=== PATIENT | male | born 1950 | race Caucasian/White ===

== ENCOUNTER → 2018-06-11 06:27 | Outpatient (CLI) | payer MEDICARE, OTHER, SELFPAY ==
[2018-05-28 15:03] VITALS: BMI 30.8
--- NOTE | 2018-06-11 06:31 | ECHOCS_ITS ---
Reason For Study: ARRHYTHMIA Procedure This was a 2D Doppler, Color Flow transthoracic echocardiogram. Exam performed in department. Left Ventricle Normal LV size. The estimated ejection fraction is 45 %. Septal motion consistent with IVCD. Stage 1 diastolic dysfunction. No regional wall motion abnormalities noted. Right Ventricle Normal RV size. Normal systolic function. Atria Normal left atrium. Normal right atrium. Mitral Valve Normal mitral valve. Tricuspid Valve Normal tricuspid valve. Mild tricuspid valve insufficiency. Aortic Valve Normal aortic valve. Pulmonic Valve Normal pulmonic valve. Great Vessels Normal aortic root. The pulmonary artery is normal size. Normal inferior vena cava. Pericardium/Pleural No pericardial effusion. Medication Diluted definity 3ml given slow IV push to enhance endocardial definition. MMode/2D Measurements & Calculations LVIDd: 5.2 cm IVSd: 1.1 cm Ao root diam: 3.5 cm LVIDs: 3.5 cm LVPWd: 1.1 cm RVDd: 4.0 cm FS: 32.5 % LAV(MOD-bp): 54.1 ml LVAd ap4: 39.1 cm2 SV(MOD-sp4): 59.1 ml LAV(MOD-bp) Indexed: 25.4 ml/m2 EDV(MOD-sp4): 135.8 ml LAV(MOD-sp2): 68.1 ml EDV(sp4-el): 142.8 ml LAV(MOD-sp4): 44.0 ml LVAs ap4: 27.4 cm2 ESV(MOD-sp4): 76.8 ml ESV(sp4-el): 78.6 ml EF(MOD-sp4): 43.5 % EF(sp4-el): 45.0 % SV(sp4-el): 64.2 ml LA A4 area: 16.5 cm2 LA dimension(2D): 3.8 cm RA A4 area: 12.9 cm2 Time Measurements MV dec time: 0.27 sec Doppler Measurements & Calculations MV E max ruiz: 64.2 cm/sec Lat Peak E' Ruiz: 8.0 cm/sec Med Peak E' Ruiz: 5.5 cm/sec MV A max ruiz: 86.9 cm/sec E/E' lat: 8.0 E/E' med: 11.7 MV E/A: 0.74 Ao V2 max: 131.5 cm/sec LV V1 max: 100.4 cm/sec TR max ruiz: 216.4 cm/sec Ao max P.9 mmHg LV V1 max P.0 mmHg TR max P.8 mmHg Interpretation Summary Normal LV size. The estimated ejection fraction is 45 %. Septal motion consistent with IVCD. Stage 1 diastolic dysfunction. Compared to prior study, there is no significant change. Ordering Physician: Rey Michaud Referring Physician: EVIN KING Performed By: Tina Lee, RDCS, RVT
--- NOTE | 2018-06-11 12:49 | STRESSREP ---
Stress Test Report Pharmacologic myocardial perfusion stress test. 67-year-old lady with a history of left bundle branch block patent. Stress protocol Resting EKG demonstrates normal sinus rhythm with a rate of 62 bpm left bundle branch block pattern is noted. The resting blood pressure 140/80 mmHg. 0.4 mg of regadenoson was infused per usual protocol followed by rapid intravenous saline flush injection continuous EKG monitoring was performed. At rest there were no ST or T wave changes noted suggest abnormal flow reserve. Left bundle branch block pattern was noted throughout. The maximum heart rate was 73 bpm which was 48% of maximum predicted heart rate. The maximum workload was 1 metabolic equivalent. Myocardial perfusion protocol. 12.0 mCi of technetium 99m sestamibi was injected at rest. 0.4 mg of regadenoson was infused per usual protocol peak infusion 36.0 mCi of technetium 99m sestamibi was injected stress images were obtained stress and rest images were reconstructed and compared in the short axis vertical long horizontal long axis. Gated images were also obtained next Perfusion SPECT analysis: Review of the stress images demonstrate normal uptake of tracer noted in the septum anterior wall and lateral wall. There is mildly reduced perfusion noted in the inferior septal wall with mild improvement on rest suggesting a mild amount of reversible ischemia. Left bundle branch block patent artifact cannot be completely excluded. Gated SPECT analysis: The gated ejection fraction is noted to be 48%. Conclusion: Myocardial perfusion stress test with mildly abnormal inferior septal perfusion defect. Mild cardiomyopathy present.
== END ==
PROVIDERS: Family Provider Internal Medicine; PCP Internal Medicine; Referring Provider Internal Medicine Cardiovascular Disease; Visit Provider Internal Medicine Cardiovascular Disease
DX: I44.7 Left bundle-branch block, unspecified (principal); I25.10 Atherosclerotic heart disease of native coronary artery without angina pectoris
CPT/HCPCS: 78452; 93017; 93306; A9500; Q9957; A4216; C8929; J2785

== ENCOUNTER → 2019-11-16 09:57 | Outpatient (CLI) | payer MEDICARE, OTHER, SELFPAY ==
[2019-06-10 11:57] VITALS: BMI 30.8
== END ==
PROVIDERS: PCP Physician Assistant; Referring Provider Family Medicine; Visit Provider Family Medicine
DX: Z11.59 Encounter for screening for other viral diseases (principal)
CPT/HCPCS: 87635; C9803; U0003

== ENCOUNTER 2022-01-05 05:53 | Day surgery (SDC) | payer MEDICARE, OTHER, SELFPAY ==
--- NOTE | 2022-01-05 | GASB_PTH ---
PATIENT: ALFRED MCKOY LOC: EN U#:[id number] AGE/SX: 71/M ROOM: RE01/05/[address]: Dr. 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 pylori, B - Greater curvature polyp, C - Distal esophagus biopsy MICROSCOPIC DIAGNOSIS A. Antrum, biopsy: Mild gastritis. See microscopic description and comment. B. Greater curvature polyp, biopsy: Fundic gland polyp. C. 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 Moderate chronic inflammation. Negative for dysplasia. See comment. COMMENT A. The results of immunohistochemistry for Helicobacter pylori will be reported separately ([id number]). C. Alcian blue/PAS stain with matched control is used in the evaluation of the specimen. Immunohistochemistry ([id number]) for P53 and Ki-67 will be performed and results will be reported separately. MICROSCOPIC DESCRIPTION Slides are reviewed. The specimen shows fragments of gastric mucosa with chronic inflammatory cell infiltrates in the lamina propria consisting of lymphocytes and plasma cells, consistent with mild chronic gastritis. GROSS DESCRIPTION A - Received in fixative is one container labeled with the patient's name and designated antrum biopsy. The specimen consists of one irregular fragment of light butt soft tissue that measures 0.3 x 0.3 x 0.1 cm. The specimen is totally submitted in one cassette. B - Received in fixative is one container labeled with the patient's name and designated greater curvature polyp. The specimen consists of one irregular fragment of light butt soft tissue that measures 0.4 x 0.3 x 0.1 cm. The specimen is totally submitted in one cassette. C - Received in fixative is one container labeled with the patient's name and designated distal esophagus biopsy. The specimen consists of multiple irregular fragments of light butt soft tissue that in aggregate measure 1.5 x 0.5 x 0.1 cm. The specimen is totally submitted in one cassette. / SJ:rg 01/05/2022 TC:3 CPT: 12083 x3
--- NOTE | 2022-01-05 06:05 | HP.PCM_ITS ---
History and Physical Date of Admission: 01/05/22 Chief Complaint: colonoscopy Gatekeeper Required: No Is patient in pain?: No Allergies indomethacin Adverse Reaction (Verified 11/14/21 14:07) Nausea Medications aspirin 81 mg tablet,delayed release (Adult Aspirin Regimen) 81 mg PO DAILY 05/27/18 [History Confirmed 11/14/21] glimepiride 2 mg tablet 2 mg PO QAM 05/27/18 [History Confirmed 11/14/21] metformin 1,000 mg tablet 1,000 mg PO BID 05/27/18 [History Confirmed 11/14/21] omeprazole 20 mg capsule,delayed release 20 mg PO DAILY 05/27/18 [History Confirmed 11/14/21] folic acid 1 mg tablet 1 mg PO DAILY 06/10/19 [History Confirmed 11/14/21] lisinopril 40 mg tablet 40 mg PO QPM 06/10/19 [History Confirmed 11/14/21] vit A 7,160 unit-vit C 113 mg-vit E 100 [id number] tablet tab PO BID 06/10/19 [History Confirmed 11/14/21] amlodipine 5 mg tablet 5 mg PO DAILY #90 tabs 06/15/20 [Rx Confirmed 11/14/21] dulaglutide 0.75 mg/0.5 mL subcutaneous pen injector 0.75 mg subcut QWEEK 07/11/21 [History Confirmed 11/14/21] insulin degludec 100 unit/mL (3 mL) subcutaneous pen (Tresiba FlexTouch U-100 insulin) 28 unit subcut DAILY 07/11/21 [History Confirmed 11/14/21] rosuvastatin 20 mg tablet 20 mg PO DAILY #90 tabs 07/11/21 [Rx Confirmed 11/14/21] [facility] Medical History?(Updated 11/14/21 @ 14:[address] Ramesh Griffiths MD) Barretts esophagus Essential (primary) hypertension Hemochromatosis Hyperlipidemia Left bundle branch block Non-ischemic cardiomyopathy Obesity Type 2 diabetes mellitus Surgical History? History of left heart catheterization (08/28/18) History of surgical procedure on eye proper using laser Hx of cholecystectomy Family History? Father Heart disease Social History? alcohol intake:? current HPI HPI HPI: Is [id number] gentleman returns for repeat colonoscopy.? He is referred by Dr. Bam Nixon and a written copy of my surgical consult recommendations will return to him.? The patient also has a history of gastroesophageal reflux disease and a history of Carbajal's esophagus without dysplasia.? He has a history of colon polyps.? On May 05, 2018 Dr. Westley Cottrell performed an u pper endoscopy for the patient.? This required 100 mcg fentanyl and 7 mg of Versed.? Short segment Carbajal's was identified.? A few gastric polyps.? Repeat upper scope in 2 years was recommended.? Previously on August 13, 2016 I assisted the patient with a colonoscopy.? Multiple diverticula were identified.? The patient has a previous history of colon polyps.? Repeat at 5 years was recommended.? That examination was accomplished with 4.5 mg of Versed and 100 mg of Demerol and an upper endoscopy was performed at that same time identifying the Carbajal's esophagus and gastric polyps.? No dysplasia was identified. Fortunately the patient is asymptomatic.? He denies chest pain or shortness of breath.? Medication conversions to try to get him off of insulin as he has been initiated on Trulicity.? Hemoglobin A1c 8.4.? He does take omeprazole 20 mg daily in addition to his other medications. ROS General General: No weight change, appetite, fatigue, colon cancer, breast cancer or weakness HEENT HEENT: No difficulty swallowing, eye injury, eye surgery, swollen glands or hoarseness Endo Endocrine: Yes diabetes mellitus; No thyroid disease, thyroid cancer, Hair loss, heat intolerance or cold intolerance Skin Skin: No rash or changing moles Breast Breast: No left breast lump, right breast lump, nipple discharge, breast pain, abnormal mammogram, abnormal US or breast enlargement Musc Musculoskeletal: No back problems, arthritis, rheumatoid arthritis, gout or joint pain Cardio Cardiovascular: No murmur, pacemaker, heart disease, atrial fibrillation, high blood pressure, heart attack, heart stent, palpitations, shortness of breat with exertion or chest pain Psych Psychiatric: No depression, anxiety or hearing voices Resp Respiratory: No shortness of breath, No sleep apnea, No cough, No COPD, No asthma, No emphysema and No wheezing Gastro Gastrointestinal: No abdominal pain, No nausea or vomiting, No diarrhea, No constipation, No blood in stool, No acid reflux, No hemorrhoids, No ulcers, No gallbladder problem and No black,tarry stools Isaac Hematologic: Yes blood thinners, No blood disorders, No bleeding, No anemia and No blood clots Additional Details: ASA Neuro Neurologic: No system reviewed and no additional complaints, except as documented, No as per HPI, No abnormal gait, No abnormal hearing, No abnormal movements, No abnormal speech, No behavioral changes, No burning sensations, No confusion, No convulsions, No disequilibrium, No dizziness, No localized weakness, No frequent falls, No headache(s), No lack of coordination, No loss of vision, No memory loss, No numbness, No other visual disturbances, No radicular pain, No restless legs, No sensory deficit, No syncope, No tingling, No tremor(s), No weakness and No other Exam Const General: cooperative, comfortable and no acute distress HENMT Head: normal to inspection Eyes General: appearance normal, both eyes and all related structures Neck Neck: normal visual inspection Chest Chest palpation & inspection: normal inspection of the chest Resp Effort & Inspection: normal respiratory effort Auscultation: clear to auscultation bilaterally Cardio Rate: regular rate Rhythm: regular rhythm GI Inspection: normal to inspection Palpation: soft and no hepatosplenomegaly Musc Cervical Spine: normal cervical lordosis Skin General: no rashes or lesions noted Neuro General: patient alert, patient awake and patient oriented x3 Extrem General: normal to inspection and no calf tenderness Psych Appearance: grossly normal Assessment and Plan Assessment and Plan (1) Barretts esophagus: ?Status:?Acute (2) Personal history of colonic polyps: ?Status:?Acute Plan I recommended the patient a combined esophagogastroduodenoscopy with possible biopsy and colonoscopy with possible biopsy or polypectomy as indicated.? I described the technique, benefit, risk, alternatives.? He has had an opportunity to ask and have questions answered.? We will utilize monitored anesthesia care. He has had an opportunity to ask questions answered.? We will schedule procedure at his discretion.? I appreciate the ongoing opportunity of assisting with the surgical care. Copy: Dr. Bam Griffiths M.D., F.A.C.S. I have examined the patient and the H&P has been reviewed. There are no clinical changes since date of exam. Ramesh Griffiths M.D., F.A.C.S.
[2022-01-05 06:15] VITALS: BP 116/89; PULSE 74; RESP 16; TEMP 36.2; O2SAT 100; BMI 29.2
[2022-01-05] MEDS: Lactated Ringers 1,000 ML 15 ML IV (06:46)
--- NOTE | 2022-01-05 07:00 | IMM_PTH ---
PATIENT: ALFRED MCKOY LOC: EN U#:[id number] AGE/SX: 71/M ROOM: RE01/05/[address]: Dr. Ramesh Griffiths MD : 1950 BED: DIS: 01/05/2022 SPEC #: [id number] RECD: 01/05/22 11:53 STATUS: KRISSY REQ #: [id number] SEGUNDO: 01/05/22 07:[address]: Ramesh Griffiths DEPT: IMMUNOHISTOCHEMISTRY RECD BY: Oralia Pierre ENTERED: 01/05/22 11:53 SP TYPE: IMMUNO OTHR DR: MARIZA Aguirre Tissues: A - Stomach, NOS C - Esophagus, NOS Procedures: H Pylori (initial) P53 (add) KI-67 (initial) PHYSICIAN & INSTITUTION [place] [id number] SPECIMEN INFORMATION: Tissue Source: A ? Antrum biopsy, C -Distal esophagus biopsy Clinical Info: Carbajal?s esophagus, history of colonic polyps Specimen Number: [id number] Michael Wilkerson CPT code: 56373 x2, 56735 METHODOLOGY: Deparaffinized sections of prefer/formalin-fixed tissue or PAP/DQ stained slides are incubated with monoclonal/polyclonal antibodies/oligonucleotide probes. Localization is made via biotin free immunoperoxidase method. Appropriate controls are performed and reacted as expected. Results on target cell population are indicated in the following table: RESULTS: ANTIBODY / CLONE RESULT Block A H Pylori (polyclonal) negative Block C P53 (DO-7) negative Ki-67 (30-9) positive, very low These tests were developed and their performance characteristics determined by [facility]. They may not have been cleared or approved by the U.S. Food and Drug Administration. The FDA has determined that such clearance or approval is not necessary. The above immunohistochemical/dualISH markers are ordered and reviewed by the Pathologist. INTERPRETATION: A. Antrum, biopsy: Negative for Helicobacter pylori organisms. C: Distal esophagus biopsy: Negative for dysplasia SJ:spenser 01/08/22
[2022-01-05 07:16] LABS: Bedside Glucose 159 mg/dL (74-106)
[2022-01-05 07:35] VITALS: BP 113/60; BP 116/89; PULSE 72; RESP 16; TEMP 36.5; O2SAT 93
--- NOTE | 2022-01-05 07:37 | OP.CCLET_ITS ---
01/05/2022 Turner Kothari Re : Upper GI endoscopy procedure for Get Hernandes Taye This procedure was performed on Wednesday, January 05, 2022. My impressions and recommendations are as follows: Impressions : - Esophageal mucosal changes consistent with short-segment Carbajal's esophagus. Biopsied. - Z-line irregular, 41 cm from the incisors. - Small hiatal hernia. - Multiple gastric polyps. Resected and retrieved. - Erythematous mucosa in the antrum. Biopsied. - Normal examined duodenum. Recommendations : - Discharge patient to home. - Resume previous diet. - Continue present medications. - Telephone my office for pathology results in 1 week. My findings are described in the full procedure note, which is enclosed. If I can be of further assistance, please feel free to contact me at Doctor phone number(s): Work: . Sincerely, Ramesh Griffiths MD 01/05/2022 7:36:50 AM This report has been signed electronically.
--- NOTE | 2022-01-05 07:37 | OP.EGD_ITS ---
Patient Name: Get Beth Procedure Date: 01/05/2022 6:58 AM Date of : 1950 Age: 71 Procedure: Upper GI endoscopy Indications: Follow-up of Carbajal's esophagus Providers: Ramesh Griffiths MD Medicines: See the Anesthesia note for documentation of the administered medications Complications: No immediate complications. Procedure: Pre-Anesthesia Assessment: - Prior to the procedure, a History and Physical was performed, and patient medications and allergies were reviewed. The patient's tolerance of previous anesthesia was also reviewed. The risks and benefits of the procedure and the sedation options and risks were discussed with the patient. All questions were answered, and informed consent was obtained. Prior Anticoagulants: The patient has taken no previous anticoagulant or antiplatelet agents. ASA Grade Assessment: II - A patient with mild systemic disease. After reviewing the risks and benefits, the patient was deemed in satisfactory condition to undergo the procedure. After obtaining informed consent, the endoscope was passed under direct vision. Throughout the procedure, the patient's blood pressure, pulse, and oxygen saturations were monitored continuously. The colonoscope was introduced through the mouth, and advanced to the second part of duodenum. The upper GI endoscopy was accomplished without difficulty. The patient tolerated the procedure well. Scope In: 7:08:41 AM Scope Out: 7:18:47 AM Total Procedure Duration Time 0 hours 10 minutes 6 seconds Findings: There were esophageal mucosal changes consistent with short-segment Carbajal's esophagus present in the distal esophagus. The maximum longitudinal extent of these mucosal changes was 1 cm in length. Mucosa was biopsied with a cold forceps for histology in 4 quadrants at the gastroesophageal junction. The Z-line was irregular and was found 41 cm from the incisors. A small hiatal hernia was present. Multiple sessile polyps with no bleeding and no stigmata of recent bleeding were found on the greater curvature of the stomach. The polyp was removed with a cold biopsy forceps. Resection and retrieval were complete. Diffuse mildly erythematous mucosa without bleeding was found in the gastric antrum. Biopsies were taken with a cold forceps for histology. The examined duodenum was normal. Impression: - Esophageal mucosal changes consistent with short-segment Carbajal's esophagus. Biopsied. - Z-line irregular, 41 cm from the incisors. - Small hiatal hernia. - Multiple gastric polyps. Resected and retrieved. - Erythematous mucosa in the antrum. Biopsied. - Normal examined duodenum. Recommendation: - Discharge patient to home. - Resume previous diet. - Continue present medications. - Telephone my office for pathology results in 1 week. Procedure Code(s): --- Professional --- 69181, Esophagogastroduodenoscopy, flexible, transoral; with biopsy, single or multiple Diagnosis Code(s): --- Professional --- K22.70, Carbajal's esophagus without dysplasia K22.8, Other specified diseases of esophagus K44.9, Diaphragmatic hernia without obstruction or gangrene K31.7, Polyp of stomach and duodenum K31.89, Other diseases of stomach and duodenum CPT copyright 2017 [employer]. All rights reserved. The codes documented in this report are preliminary and upon transitional nurse review may be revised to meet current compliance requirements. Ramesh Griffiths MD 01/05/2022 7:36:50 AM This report has been signed electronically. Number of Addenda: 0 Note Initiated On: 01/05/2022 6:58 AM
--- NOTE | 2022-01-05 07:39 | OP.COLON_ITS ---
Patient Name: Get Beth Procedure Date: 01/05/2022 7:19 AM Date of : 1950 Age: 71 Procedure: Colonoscopy Indications: High risk colon cancer surveillance: Personal history of colonic polyps Providers: Ramesh Griffiths MD Medicines: See the Anesthesia note for documentation of the administered medications Patient Profile: Last Colonoscopy: July 2016. Complications: No immediate complications. Procedure: Pre-Anesthesia Assessment: - Prior to the procedure, a History and Physical was performed, and patient medications and allergies were reviewed. The patient's tolerance of previous anesthesia was also reviewed. The risks and benefits of the procedure and the sedation options and risks were discussed with the patient. All questions were answered, and informed consent was obtained. Prior Anticoagulants: The patient has taken no previous anticoagulant or antiplatelet agents. ASA Grade Assessment: II - A patient with mild systemic disease. After reviewing the risks and benefits, the patient was deemed in satisfactory condition to undergo the procedure. After I obtained informed consent, the scope was passed under direct vision. Throughout the procedure, the patient's blood pressure, pulse, and oxygen saturations were monitored continuously. The colonoscope was introduced through the anus and advanced to the cecum, identified by appendiceal orifice and ileocecal valve. The colonoscopy was performed without difficulty. The patient tolerated the procedure well. The quality of the bowel preparation was good. The ileocecal valve and the appendiceal orifice were photographed. Scope In: 7:20:17 AM Scope Withdrawal Time 0 hours 6 minutes 0 seconds Scope Out: 7:30:27 AM Total Procedure Duration Time 0 hours 10 minutes 10 seconds Findings: The digital rectal exam findings include increased firmness of the prostate. Scattered diverticula were found in the sigmoid colon. The exam was otherwise without abnormality. Impression: - Increased firmness of the prostate found on digital rectal exam. - Diverticulosis in the sigmoid colon. - The examination was otherwise normal. - No specimens collected. Recommendation: - Discharge patient to home. - Resume previous diet. - Continue present medications. - Repeat colonoscopy in 5 years for surveillance. Please follow-up with your primary care physician regarding your prostate finding. Procedure Code(s): --- Professional --- 99254, Colonoscopy, flexible; diagnostic, including collection of specimen(s) by brushing or washing, when performed (separate procedure) Diagnosis Code(s): --- Professional --- Z86.010, Personal history of colonic polyps N42.9, Disorder of prostate, unspecified K57.30, Diverticulosis of large intestine without perforation or abscess without bleeding CPT copyright 2017 [employer]. All rights reserved. The codes documented in this report are preliminary and upon quality control representative review may be revised to meet current compliance requirements. Ramesh Griffiths MD 01/05/2022 7:39:20 AM This report has been signed electronically. Number of Addenda: 0 Note Initiated On: 01/05/2022 7:19 AM
--- NOTE | 2022-01-05 07:39 | OP.CCLET_ITS ---
01/05/2022 Turner Kothari Re : Colonoscopy procedure for Get Hernandes Taye This procedure was performed on Wednesday, January 05, 2022. My impressions and recommendations are as follows: Impressions : - Increased firmness of the prostate found on digital rectal exam. - Diverticulosis in the sigmoid colon. - The examination was otherwise normal. - No specimens collected. Recommendations : - Discharge patient to home. - Resume previous diet. - Continue present medications. - Repeat colonoscopy in 5 years for surveillance. Please follow-up with your primary care physician regarding your prostate finding. My findings are described in the full procedure note, which is enclosed. If I can be of further assistance, please feel free to contact me at Doctor phone number(s): Work: . Sincerely, Ramesh Griffiths MD 01/05/2022 7:39:20 AM This report has been signed electronically.
[2022-01-05 07:40] VITALS: BP 108/60; BP 116/89; PULSE 70; RESP 16; O2SAT 91
[2022-01-05 07:45] VITALS: BP 110/62; BP 116/89; PULSE 72; RESP 16; O2SAT 93
[2022-01-05 07:52] VITALS: BP 110/62; BP 116/89; PULSE 75; RESP 16; TEMP 37; O2SAT 96
[2022-01-05 08:15] VITALS: BP 116/89
== END 2022-01-05 08:32 | disposition home or self-care (01) ==
LOC: EN 05:54 → AC 05:55
PROVIDERS: PCP Physician Assistant; Referring Provider Physician Assistant; Visit Provider Surgery
PROC: 0DJD8ZZ Inspection of Lower Intestinal Tract, Via Natural or Artificial Opening Endoscopic (ICD-10-PCS; CPT 45378; principal; 2022-01-05 06:55)
DX: K22.70 Barrett's esophagus without dysplasia (principal); I42.8 Other cardiomyopathies; Z79.4 Long term (current) use of insulin; E11.9 Type 2 diabetes mellitus without complications; K29.50 Unspecified chronic gastritis without bleeding; K31.89 Other diseases of stomach and duodenum; K44.9 Diaphragmatic hernia without obstruction or gangrene; K57.30 Diverticulosis of large intestine without perforation or abscess without bleeding; K31.7 Polyp of stomach and duodenum; E78.00 Pure hypercholesterolemia, unspecified; I10 Essential (primary) hypertension; K21.9 Gastro-esophageal reflux disease without esophagitis; R26.89 Other abnormalities of gait and mobility; Z86.16 Personal history of COVID-19; Z79.899 Other long term (current) drug therapy; Z79.84 Long term (current) use of oral hypoglycemic drugs; Z79.82 Long term (current) use of aspirin; Z86.010 Personal history of colon polyps; Z86.718 Personal history of other venous thrombosis and embolism
CPT/HCPCS: 43239; 45378; 82962; 88305; 88341; 88342; J7120; J2405

== ENCOUNTER 2022-04-01 18:31 | Emergency (ER) | payer MEDICARE, OTHER, SELFPAY ==
[2022-04-01 18:31] VITALS: BP 152/93; PULSE 72; RESP 16; TEMP 36.6; O2SAT 99; BMI 28.7
--- NOTE | 2022-04-01 18:37 | EKG12_ITS ---
Test Reason : ARHYTHMIA Blood Pressure : / mmHG Vent. Rate : 078 BPM Atrial Rate : 078 BPM P-R Int : 186 ms QRS Dur : 152 ms QT Int : 406 ms P-R-T Axes : 007 -55 099 degrees QTc Int : 462 ms Sinus rhythm with Premature supraventricular complexes and with occasional Premature ventricular comp lexes Left axis deviation Left bundle branch block Abnormal ECG Confirmed by MICHAEL CAMACHO, ZAIDA ([id number]), news editor SHY BROOKS ([id number]) on 04/02/2022 1:11:59 PM Referred By: GUTIERREZ Confirmed By:ZAIDA RODRIGUEZ MD
--- NOTE | 2022-04-01 18:43 | EKG12_ITS ---
Test Reason : CP Blood Pressure : / mmHG Vent. Rate : 077 BPM Atrial Rate : 077 BPM P-R Int : 178 ms QRS Dur : 154 ms QT Int : 402 ms P-R-T Axes : 010 -62 100 degrees QTc Int : 454 ms Sinus rhythm with Atrial tachycardia Left axis deviation Left bundle branch block Abnormal ECG Confirmed by MICHAEL CAMACHO, ZAIDA ([id number]), fan mail editor SHY BROOKS ([id number]) on 04/02/2022 1:14:43 PM Referred By: GUTIERREZ Confirmed By:ZAIDA RODRIGUEZ MD
--- NOTE | 2022-04-01 18:59 | RAD_ITS ---
EXAM: XR CHEST, 1 VIEW CLINICAL INDICATION: chest pain TECHNIQUE: Frontal view of the chest. This report was created using [employer] report generation technology. COMPARISON: None. FINDINGS: LUNGS AND PLEURAL SPACES: Unremarkable. No consolidation or edema. No pneumothorax. No effusion. HEART: Unremarkable. Cardiac silhouette not enlarged. MEDIASTINUM: Central airways and mediastinal contour are unremarkable. BONES/JOINTS: Unremarkable. SOFT TISSUES: Unremarkable. RAD/Chest 1 View (Portable) IMPRESSION: No radiographic evidence of acute cardiopulmonary disease. Electronically Signed: Heber Kate MD at 19:25 EST ,
[2022-04-01 19:10] LABS: Absolute Lymphocyte Count 1.81 X10^3/uL (0.83-4.51); Absolute Neutrophil Count 8.9 X10^3/uL (2.0-7.7); Basophil# 0.08 X10^3/uL; Basophil% 0.6 % (0-1); Eosinophil# 0.81 X10^3/uL; Eosinophils% 6.3 % (0-5); Hemoglobin 11.7 g/dL (13.0-16.5); Lymphocyte # 1.81 X10^3/ul (0.83-4.51); Lymphocyte % 14.1 % (19-41); Mean Corpuscular Hgb 22.5 pg (27.0-32.0); Mean Platelet Vol. 10.8 fl (6.2-12.0); Monocyte# 1.22 X10^3/uL; Monocyte% 9.5 % (0-10); NRBC Flagged by Analyzer 0 % (0-5); Neutrophil # 8.92 X10^3/uL (2.7-7.7); Neutrophil % 69.2 % (47-70); Platelet Count 313 K/mm3 (150-450); RBC Distribution Width CV 19.1 % (11.6-14.6); RBC Distribution Width SD 50.6 fl (35.1-43.9); White Blood Count 12.9 K/mm3 (4.4-11.0)
--- NOTE | 2022-04-01 19:10 | EX.ED.DYSGE1 ---
HPI History of Present Illness Chief Complaint: Chest Pain Detail of Chief Complaint: Patient presents with right-sided lower anterior chest pain that started ea Informant: patient and spouse/S.O. Onset/Context/Timing Onset: Today Context: Sudden Onset Timing: Continuous Quality: Pain Location: Anterior right lower chest Current Severity: Mild Maximum Severity: Moderate Worsened by: Nothing specific Relieved by: Nothing Associated Symptoms Associated Symptoms: Diaphoresis Narrative Narrative: Patient is a 71-year-old male with history of Carbajal's esophagitis, nonischemic cardiomyopathy, essential primary hypertension, hyperlipidemia, hemochromatosis, type 2 diabetes and known history of left bundle branch block. He presents because of the anterior lower right chest pain that has been constant. He denies history of DVT or PE. He denies leg pain, swelling discoloration. He denies hematemesis, melena hematochezia. He denies history of renal ureterolithiasis. He denies dysuria, frequency, urgency or hematuria. He denies history of trauma. He is not on an anticoagulant. He has no known history of ischemic cardiac disease. He is scheduled for an outpatient echo ordered by Dr. Michaud. He states he was told he needs an echo since the last 1 was done approximately 2 years ago. He denies orthopnea or PND. He is status postcholecystectomy. He denies intolerance to greasy or fried foods. He denies history of pancreatitis. Prior similar symptoms: No Recent Illness/Hospitalization: No PFSH PFSH Medical History Arthritis Back pain Balance problem Barretts esophagus Cardiology follow-up encounter COVID Dietary restriction DVT (deep venous thrombosis) Essential (primary) hypertension Fatty liver Former smoker Gastric reflux Hemochromatosis High cholesterol History of echocardiogram History of edema History of stress test History of ulceration Hyperlipidemia Hypertension Insulin dependent diabetes mellitus Left bundle branch block Non-ischemic cardiomyopathy Obesity Prostate disease Restless legs Scab Type 2 diabetes mellitus Wears glasses Home Medications aspirin 81 mg tablet,delayed release (Adult Aspirin Regimen) 81 mg PO DAILY 05/27/18 [History Last Taken 01/04/22] glimepiride 2 mg tablet 2 mg PO QAM 05/27/18 [History Last Taken 01/04/22] metformin 1,000 mg tablet 1,000 mg PO BID 05/27/18 [History Last Taken 01/04/22] omeprazole 20 mg capsule,delayed release 20 mg PO DAILY 05/27/18 [History Last Taken 01/04/22] folic acid 1 mg tablet 1 mg PO DAILY 06/10/19 [History Last Taken 01/04/22] lisinopril 40 mg tablet 40 mg PO QHS 06/10/19 [History Last Taken 01/04/22] vit A 7,160 unit-vit C 113 mg-vit E 100 mymy-lsbj-hqroaz tablet 1 tab PO BID 06/10/19 [History Last Taken 01/04/22] dulaglutide 0.75 mg/0.5 mL subcutaneous pen injector 0.75 mg subcut QWEEK 07/11/21 [History Last Taken 01/04/22] insulin degludec 100 unit/mL (3 mL) subcutaneous pen (Tresiba FlexTouch U-100 insulin) 25 unit subcut QHS 07/11/21 [History Last Taken 01/04/22 12.5 units] amlodipine 5 mg tablet 5 mg PO QHS 01/03/22 [History Last Taken 01/05/22] rosuvastatin 20 mg tablet 20 mg PO QHS 01/03/22 [History Last Taken 01/04/22] sucralfate 1 gram tablet (Carafate) 1 g PO .AC #120 tabs 04/01/22 [Rx Last Taken Unknown] Allergy/AdvReac Type Severity Reaction Status Date / Time indomethacin AdvReac Nausea Verified 04/01/22 18:33 Family History Father Heart disease Surgical History History of esophagogastroduodenoscopy (EGD) History of left heart catheterization (08/28/18) Hx of cholecystectomy Hx of colonoscopy Hx of left cataract extraction Hx of right cataract extraction Social History (Updated 04/01/22 @ 20:[address] Scooby Rodríguez MD) household members: spouse Smoking Status: Former smoker quit date: 02/25/79 pack-years: 15 alcohol intake: current ROS ROS ED Constitutional Constitutional ED: Denies chills, fever(s), subjective, sweats or weight loss Eyes Eyes: Denies blurry vision, change in vision or diplopia ENT ENT ED: Denies ear pain, rhinorrhea or sore throat Cardiovascular Cardiovascular: Reports chest pain; Denies orthopnea, palpitations, paroxysmal nocturnal dyspnea or racing heartbeat Respiratory/Chest Respiratory/Chest: Denies cough, dyspnea, dyspnea on exertion, orthopnea, paroxysmal nocturnal dyspnea or sputum Gastrointestinal Gastrointestinal: Reports nausea; Denies abdominal pain, constipation, diarrhea, melena or vomiting Genitourinary Genitourinary ED: Denies dysuria, hematuria or urinary frequency Musculoskeletal Musculoskeletal: Reports back pain and other Details: Patient now states that the pain does wrap around to his back. ; Denies arthralgias, myalgias or neck pain Integumentary Denies abscess, Abrasions or rash Neurologic Neurologic: Denies headache(s), paresthesias or weakness Psychiatric Psychiatric: Denies anxiety or depression Endocrine Endocrinology: Denies cold intolerance, heat intolerance, polydipsia or polyuria Hematologic/Lymphatic Hematologic/Lymphatic: Reports systems reviewed and no addt'l complaints, except as documented EXAM Physical Exam Const Vital Signs: 04/01/22 18:31 04/01/22 18:37 04/01/22 19:03 Temperature 97.8 F Temperature Source Temporal Pulse Rate 72 Respiratory Rate 16 Respiratory Effort Normal Non-Labored Blood Pressure 152/93 H Blood Pressure Mean 112 Pulse Ox 99 Oxygen Delivery Method Room Air Room Air 04/01/22 20:31 04/01/22 21:00 04/01/22 22:00 Temperature Temperature Source Pulse Rate Respiratory Rate Respiratory Effort Blood Pressure 164/84 H 175/100 H 180/80 H Blood Pressure Mean 110 125 113 Pulse Ox Oxygen Delivery Method Positive well nourished and well developed Constitutional Narrative: Patient is diaphoretic. He appears uncomfortable. General Appearance ED: well developed and diaphoretic; Negative for cyanotic, NAD or pallor HEENT Reports moist mucous membranes HEENT Narrative: Head is a traumatic normocephalic. Ears normal. Nares patent. Uvula is midline. There is no erythema or exudate. There is no deviation tongue with protrusion. Eyes PERRL and EOMs intact bilaterally General Eye ED: Negative for pale conjunctiva or scleral icterus Neck no lymphadenopathy, supple and no JVD Chest Wall inspection of chest normal and palpation of chest normal Resp normal respiratory effort and clear to auscultation bilaterally Cardio regular rate, regular rhythm, S1 normal heart sound, S2 normal heart sound and no murmurs GI normal to inspection, nondistended, normoactive bowel sounds, non-tender, non-distended and no masses; Negative for hepatosplenomegaly Palpation: soft Back/Spine no CVA tenderness Cervical Spine: Negative for cervical spine tenderness Thoracic Spine / Upper Back: Negative for thoracic spinal tenderness Lumbar Spine / Lower Back: Negative for lumbar spinal tenderness Extremity normal to inspection Extremity Narrative: There is no asymmetry, swelling, discoloration, leg vein distention, palpable cords or tenderness along the distribution of the deep venous system. General Extremety ED: Negative for edema or tenderness General Extremity: Negative for edema Neuro oriented x3, CN's II-XII intact bilaterally and no sensory deficits noted Sensorium / Orientation: alert Psych mental status grossly normal Skin no rashes or lesions noted, no wounds and skin turgor normal General Skin Exam: Negative for elasticity normal, jaundice or pallor MDM MDM MDM Narrative Medical decision making narrative: This may represent a right lower lobe pneumonia, GI etiology is possible. Since there is no tenderness right upper quadrant any status postcholecystectomy and no jaundice doubt this to be biliary in nature. Nurse protocol was entered. Additional lab Patient's work-up initially is unremarkable other than elevated white count. Patient is in more discomfort. He is diaphoretic. He has not complained of pain in his back. Will obtain CTA of the chest abdomen and pelvis to assess for aortic dissection. This may also represent a pulmonary embolus. Repeat EKG reveals a sinus rhythm with premature supraventricular complexes with occasional premature ventricular complexes. The EKG is essentially unchanged from the initial EKG. S were ordered by me after examining the patient. Doubt this is obstructing ureteral stone since he is complaining of pain anteriorly. Patient was informed that the CTA of his chest, abdomen and pelvis revealed no evidence of pulmonary embolus, pneumonia, aortic dissection there is findings consistent with gastritis. Patient states he had a similar presentation and was told it was a stomach. In light of this will administer 20 mg of Pepcid IV push and GI cocktail. Patient states the pain did improve after the IV Dilaudid. He still feels nauseous. Patient had an EGD done by Dr. Ramesh Griffiths December 2021. EGD was not normal. There was evidence of Carbajal's esophagitis. Biopsies were taken along Z-line incision. He had gastric polyps which were removed. There is also evidence of a hiatal hernia. Patient was under the impression that his EGD was normal. His colonoscopy did not reveal any acute significant pathology. Lab Data Attestation: I reviewed the patient's lab results. Lab results narrative: White count is elevated with no shift. Basic metabolic panel [place] is elevated creatinine of 1.15 with a GFR of 66. Glucose is 248 with a normal CO2 and anion gap. Liver enzymes normal. Lipase normal. Troponin normal. Labs: Laboratory Results - last 24 hr 04/01/22 04/01/22 04/01/22 18:48 18:48 18:48 WBC 12.9 H RBC 5.20 Hgb 11.7 L Hct 39.0 L MCV 75.0 L MCH 22.5 L MCHC 30.0 L RDW Std Deviation 50.6 H RDW Coeff of Lola 19.1 H Plt Count 313 MPV 10.8 Immature Gran % (Auto) 0.300 Neut % (Auto) 69.2 Lymph % (Auto) 14.1 L Pettis % (Auto) 9.5 Eos % (Auto) 6.3 H Baso % (Auto) 0.6 Absolute Neuts (auto) 8.9 H Absolute Lymphs (auto) 1.81 Nucleated RBC % 0 Sodium 138 Potassium 4.1 Chloride 104 Carbon Dioxide 25.0 Anion Gap 9 BUN 18 Creatinine 1.15 Estim Creat Clear Calc 59.07 Est GFR (MDRD) Af Amer 80 Est GFR (MDRD) Non-Af 66 BUN/Creatinine Ratio 15.7 Glucose 248 H Calcium 9.3 Total Bilirubin 0.60 Direct Bilirubin 0.17 AST 18 ALT 20 Alkaline Phosphatase 77 Troponin I High Sens 7 Total Protein 7.7 Albumin 4.1 Globulin 3.6 Lipase 124 Urine Color Urine Clarity Urine pH Ur Specific [place] Urine Protein Urine Glucose (UA) Urine Ketones Urine Occult Blood Urine Nitrite Urine Bilirubin Urine Urobilinogen Ur Leukocyte Esterase Urine RBC Urine WBC Ur Squamous Epith Cells Urine Bacteria Urine Mucus 04/01/22 20:05 WBC RBC Hgb Hct MCV MCH MCHC RDW Std Deviation RDW Coeff of Lola Plt Count MPV Immature Gran % (Auto) Neut % (Auto) Lymph % (Auto) Pettis % (Auto) Eos % (Auto) Baso % (Auto) Absolute Neuts (auto) Absolute Lymphs (auto) Nucleated RBC % Sodium Potassium Chloride Carbon Dioxide Anion Gap BUN Creatinine Estim Creat Clear Calc Est GFR (MDRD) Af Amer Est GFR (MDRD) Non-Af BUN/Creatinine Ratio Glucose Calcium Total Bilirubin Direct Bilirubin AST ALT Alkaline Phosphatase Troponin I High Sens Total Protein Albumin Globulin Lipase Urine Color Yellow Urine Clarity Sl. Cloudy Urine pH 7.0 Ur Specific [place] 1.010 Urine Protein 30 H Urine Glucose (UA) 250 H Urine Ketones 5 H Urine Occult Blood 10 H Urine Nitrite Negative Urine Bilirubin Negative Urine Urobilinogen Normal Ur Leukocyte Esterase Negative Urine RBC 0-5 SEEN Urine WBC 0 SEEN Ur Squamous Epith Cells 0-5 SEEN Urine Bacteria 0 SEEN Urine Mucus 0 SEEN Radiography Chest X-Ray - ED: 1 View and Read by ED Physician (Single view portable chest x-ray reveals no abnormality. Cardiac silhouette and size normal. Perihilar region normal. Lung parenchyma normal. Osseous structures are normal. This was independently reviewed interpreted by me at 1911) Diagnostic Testing: Clinical Impression(s) from Imaging Studies Chest X-Ray 04/01/22 18:59 IMPRESSION: No radiographic evidence of acute cardiopulmonary disease. Electronically Signed: Heber Kate MD at 19:25 EST , Chest/Abdomen/Pelvis CTA 04/01/22 20:20 IMPRESSION: 1. No demonstrated pulmonary embolism or arterial dissection. 2. 13mm nodule of the right adrenal gland. ACR White Paper guidelines (Berenice et al. JACR 2017; 14(8):6414-5429) suggest the following. If there is no history of malignancy consider a follow-up low dose, non-contrast adrenal CT or chemical-shift adrenal MRI in 12 months. If there is a history of malignancy recommend a low dose, non-emergent, non-contrast adrenal CT or chemical-shift adrenal MRI follow-up study. 3. Focal wall thickening of the antrum of stomach. This can suggest a gastritis. 4. There are calcifications of the abdominal aorta. This is consistent for atherosclerotic disease. There is no abdominal aortic aneurysm. No dissection. 5. There are calcifications of the coronary arteries. Electronically Signed: Heber Kate MD at 21:34 EST , EKG Initial EKG: Attestation: I personally reviewed and interpreted this EKG as follows: Interpretation: Sinus Rhythm (Ventricular rate is 77. There are supraventricular complexes noted. [place] to left. There is a left bundle branch block. TN interval is under 78 ms. QS duration is prolonged at 154 ms. QT duration is 402 ms. [place] is to the left.) Comments: Repeat EKG was performed and is documented in the MDM portion of the chart Discharge Plan Triage Chief Complaint: Chest Pain ED Provider: Scooby Rodríguez Dx/Rx/DC Orders Clinical Impression: Carbajal's esophagus with esophagitis, Essential (primary) hypertension, Non-ischemic cardiomyopathy, Type 2 diabetes mellitus, Left bundle branch block, Gastritis, Hernia, hiatal Instructions: ED GERD (Adult) Prescriptions: New sucralfate [Carafate] 1 gram tablet 1 g PO .AC Qty: 120 0RF Rx Instructions: 1/2-hour before meals and at bedtime No Action Tresiba FlexTouch U-100 100 unit/mL (3 mL) insulin pen 25 unit SC QHS metformin 1,000 mg tablet 1,000 mg PO BID omeprazole 20 mg capsule,delayed release(DR/EC) 20 mg PO DAILY glimepiride 2 mg tablet 2 mg PO QAM aspirin [Adult Aspirin Regimen] 81 mg tablet,delayed release (DR/EC) 81 mg PO DAILY folic acid 1 mg tablet 1 mg PO DAILY lisinopril 40 mg tablet 40 mg PO QHS vit A-vit C-vit B-xkyu-kzwght [id number] rlah-xi-ixzs tablet 1 tab PO BID Trulicity 0.75 mg/0.5 mL pen injector 0.75 mg subcut QWEEK rosuvastatin 20 mg tablet 20 mg PO QHS amlodipine 5 mg tablet 5 mg PO QHS Primary Care Provider: Turner Kothari Referrals: Turner Kothari PA [Primary Care Provider] - 3-5 Days if not improving Disposition Disposition: Home, Self Care
[2022-04-01 19:36] LABS: Anion Gap 9 (5-15); BUN 18 mg/dL (7-18); BUN/Creat Ratio 15.7 RATIO (10-20); Calcium,Total 9.3 mg/dL (8.5-10.1); Chloride 104 mmol/L (98-107); Creatinine, Serum 1.15 mg/dL (0.70-1.30); EST Glomerular Filtration Rate 66 mL/min (>60); Est Glom Filt Rate - Afr Amer 80 mL/min (>60); Estimated Creatinine Clearance 59.07 ml/min; Glucose 248 mg/dL (74-106); Potassium 4.1 mmol/L (3.5-5.1); Sodium Level 138 mmol/L (136-145); Troponin-I HS 7 pg/mL (3.0-78.0)
[2022-04-01 20:00] LABS: AST(SGOT) 18 U/L (15-37); Alanine Aminotransfer ALT/SGPT 20 U/L (16-61); Albumin, Serum 4.1 g/dL (3.2-5.0); Alkaline Phosphatase 77 U/L (45-117); Bilirubin, Direct 0.17 mg/dL (0.00-0.30); Globulin 3.6 g/dL (2.2-4.2); Lipase 124 U/L (73-393); Protein, Total 7.7 g/dL (6.4-8.2)
[2022-04-01 20:10] LABS: Bacteria 0 SEEN /hpf (None Seen); Mucous, Urine 0 SEEN /hpf (<or=2+); White Blood Cells 0 SEEN /hpf (0-5)
--- NOTE | 2022-04-01 20:20 | CT_ITS ---
EXAM: CT ANGIOGRAPHY CHEST, ABDOMEN AND PELVIS WITH INTRAVENOUS CONTRAST CLINICAL INDICATION: Chest pain, diaphoresis radiating to back TECHNIQUE: Helically acquired angiography images were obtained of the chest, abdomen and pelvis with intravenous contrast. This CT exam was performed using one or more of the following dose reduction techniques: automated exposure control, adjustment of the mA and/or kV according to patient size, and/or use of iterative reconstruction technique. This report was created using [employer] report generation technology. MIP reconstructed images were created and reviewed. CONTRAST: IV 100mL Isovue-370 RADIATION DOSE: CTDIvol = 14.49 mGy, DLP = 1316.82 mGy-cm COMPARISON: None. FINDINGS: VASCULATURE: AORTA: Abdominal aorta: There are calcifications of the abdominal aorta. This is consistent for atherosclerotic disease. There is no abdominal aortic aneurysm. There are calcifications of the abdominal aorta. This is consistent for atherosclerotic disease. There is no abdominal aortic aneurysm. No dissection. PULMONARY ARTERIES: Unremarkable. No demonstrated pulmonary embolism or arterial dissection. GREAT VESSELS OF AORTIC ARCH: Unremarkable. Normal in caliber. No dissection. CELIAC TRUNK AND MESENTERIC ARTERIES: Celiac and superior mesenteric arteries: No demonstrated narrowing. Common origin. Inferior mesenteric artery: There is mild diffuse narrowing. No dissection. RENAL ARTERIES: Right renal artery(arteries): No demonstrated narrowing. Left renal artery(arteries): No demonstrated narrowing. No dissection. ILIAC ARTERIES: Right common iliac artery: There is mild diffuse narrowing. Right external iliac artery: There is mild diffuse narrowing. Right internal iliac artery: There is mild diffuse narrowing. Left common iliac artery: There is mild diffuse narrowing. Left external iliac artery: There is mild diffuse narrowing. Left internal iliac artery: There is mild diffuse narrowing. No dissection. CHEST: LUNGS AND PLEURAL SPACES: Unremarkable. No mass. No consolidation or edema. No pleural effusion or thickening. No pneumothorax. HEART: There are calcifications of the coronary arteries. Heart size is normal. No pericardial effusion. MEDIASTINUM: Unremarkable. No mediastinal or hilar adenopathy. Esophagus is unremarkable. No hiatal hernia. THYROID: Unremarkable. No thyroid lesions. ABDOMEN: LIVER: Unremarkable. Homogeneous. No focal mass. GALLBLADDER AND BILE DUCTS: There is non-visualization of the gallbladder, which may be secondary to either contraction or a prior cholecystectomy. No intra- or extrahepatic biliary ductal dilation. PANCREAS: Unremarkable. No focal cystic or solid mass. SPLEEN: Unremarkable. Normal size without focal cystic or solid mass. ADRENALS: 13mm nodule of the right adrenal gland. ACR White Paper guidelines (Frias-Brown, et al. JACR 2017; 14(8):4708-9364) suggest the following. If there is no history of malignancy consider a follow-up low dose, non-contrast adrenal CT or chemical-shift adrenal MRI in 12 months. If there is a history of malignancy recommend a low dose, non-emergent, non-contrast adrenal CT or chemical-shift adrenal MRI follow-up study. KIDNEYS AND URETERS: Unremarkable. Normal renal size and position. No hydronephrosis. No acute findings of the right kidney. No acute findings of the left kidney. STOMACH AND BOWEL: Focal wall thickening of the antrum of stomach. This can suggest a gastritis. There are bilateral inguinal hernias containing fat. There is no bowel involvement. There is no incarceration. There is no findings suggesting that this is causing a bowel obstruction. There are multiple colonic diverticula consistent with diverticulosis. Normal small intestine. PELVIS: APPENDIX: There is non-visualization of the appendix. BLADDER: Unremarkable. Normal urinary bladder. REPRODUCTIVE: Unremarkable as visualized. No mass. CHEST, ABDOMEN and PELVIS: INTRAPERITONEAL SPACE: Unremarkable. No ascites or other fluid collection. No free air. BONES/JOINTS: There are degenerative changes of the shoulders. There are multi-level degenerative changes of the thoracic spine. There are diffuse degenerative changes of the visualized lumbar spine. No suspicious lytic or blastic abnormality. SOFT TISSUES: There is an umbilical hernia containing fat. LYMPH NODES: Unremarkable. No enlarged lymph nodes. CT/CTA Chst, Abd, Pel W and/or WO IMPRESSION: 1. No demonstrated pulmonary embolism or arterial dissection. 2. 13mm nodule of the right adrenal gland. ACR White Paper guidelines (Frias-Brown, et al. JACR 2017; 14(8):2148-9403) suggest the following. If there is no history of malignancy consider a follow-up low dose, non-contrast adrenal CT or chemical-shift adrenal MRI in 12 months. If there is a history of malignancy recommend a low dose, non-emergent, non-contrast adrenal CT or chemical-shift adrenal MRI follow-up study. 3. Focal wall thickening of the antrum of stomach. This can suggest a gastritis. 4. There are calcifications of the abdominal aorta. This is consistent for atherosclerotic disease. There is no abdominal aortic aneurysm. No dissection. 5. There are calcifications of the coronary arteries. Electronically Signed: Heber Kate MD at 21:34 EST ,
[2022-04-01 20:29] LABS: Color, Urine Yellow (Yellow); Glucose, Dipstick 250 mg/dl (Normal); Ketone-Dipstick 5 mg/dl (Negative); Leukocyte Esterase-Dipstick Negative /ul (Negative); Nitrite-Dipstick Negative (Negative); Occult Blood-Urine 10 /ul (Negative); Protein-Dipstick 30 mg/dl (Negative); Urine Bilirubin Dipstick Negative (Negative); Urine Clarity Sl. Cloudy (Clear); Urine Urobilinogen Normal (Normal)
[2022-04-01 20:31] VITALS: BP 164/84
[2022-04-01 20:42] LABS: Red Blood Cells-Urine 0-5 SEEN /hpf (0-5); Squamous Epithelial Cells - UA 0-5 SEEN /hpf (0-5)
[2022-04-01] MEDS: Ondansetron 4 MG/2 ML Vial IV (20:54)
[2022-04-01] MEDS: HYDROmorphone 0.5 MG/0.5 ML SYRINGE IV (20:54)
[2022-04-01 21:00] VITALS: BP 175/100
[2022-04-01 22:00] VITALS: BP 180/80
[2022-04-01] MEDS: Mag Hydrox/Al Hydrox/Simeth 30 ML UDC PO (22:37)
[2022-04-01] MEDS: Famotidine 200 MG/20 ML MDV 20 MG in 0.9% Normal Saline (Pres. free 8 ML 300 MG IV (22:37)
[2022-04-01] MEDS: Metoclopramide 10 MG/2 ML Vial 5 MG IV (23:00)
[2022-04-01 23:40] VITALS: BP 162/67; PULSE 86; RESP 18; O2SAT 99
== END 2022-04-01 23:44 | disposition home or self-care (01) ==
PROVIDERS: Emergency Provider Emergency Medicine; PCP Physician Assistant; Visit Provider Emergency Medicine
DX: K22.70 Barrett's esophagus without dysplasia (principal); I42.8 Other cardiomyopathies; E11.9 Type 2 diabetes mellitus without complications; K29.70 Gastritis, unspecified, without bleeding; K20.90 Esophagitis, unspecified without bleeding; I44.7 Left bundle-branch block, unspecified; K44.9 Diaphragmatic hernia without obstruction or gangrene; I10 Essential (primary) hypertension; K76.0 Fatty (change of) liver, not elsewhere classified; Z87.891 Personal history of nicotine dependence; Z86.16 Personal history of COVID-19; Z86.718 Personal history of other venous thrombosis and embolism
CPT/HCPCS: 71045; 71275; 74174; 80048; 80076; 81001; 83690; 84484; 85025; 93005; 96374; 96375; 99284; Q9967; A4216; J2405; J3490

== ENCOUNTER 2022-04-03 07:27 | Observation (INO) | payer MEDICARE, OTHER, SELFPAY ==
[2022-04-03 07:29] VITALS: BP 147/82; PULSE 86; RESP 14; TEMP 36.1; O2SAT 100; BMI 28.5
--- NOTE | 2022-04-03 07:44 | EKG12_ITS ---
Test Reason : N/V Blood Pressure : / mmHG Vent. Rate : 080 BPM Atrial Rate : 080 BPM P-R Int : 186 ms QRS Dur : 146 ms QT Int : 398 ms P-R-T Axes : 038 -62 102 degrees QTc Int : 459 ms Sinus rhythm with Premature supraventricular complexes Left axis deviation Left bundle branch block Abnormal ECG Confirmed by MICHAEL CAMACHO, ZAIDA ([id number]), brands editor SHY BROOKS ([id number]) on 04/05/2022 11:33:56 AM Referred By: Confirmed By:ZAIDA RODRIGUEZ MD
--- NOTE | 2022-04-03 07:44 | CT_ITS ---
STUDY: CT ABDOMEN AND PELVIS WITH CONTRAST REASON FOR EXAM: Male, 71 years old. Abdominal pain -- IV PO Contrast RADIATION DOSAGE (If Supplied By Facility): CTDIvol = ( 10.14 ) mGy, DLP = ( 586.13 ) mGycm TECHNIQUE: Transaxial images were obtained from the dome of the diaphragm to the symphysis pubis with oral contrast. Oral and amp; IV Gastrografin and amp; 100mL Isovue-370 was administered. Sagittal and coronal images were reconstructed. Individualized dose optimization techniques were used for this CT. COMPARISON: None. FINDINGS: Minimal degree of dependent bibasilar atelectasis. The visualized portions of the heart are within normal limits. Normal liver. The patient is status post cholecystectomy. Normal spleen. Normal pancreas. Normal bilateral adrenal glands. Normal right kidney. Normal left kidney. Normal visualized stomach. Normal small intestine. There are multiple colonic diverticula consistent with diverticulosis. The appendix is visualized and appears normal. There is scattered atherosclerotic calcification of the abdominal aorta, without a demonstrated aneurysm. Normal inferior vena cava. Normal retroperitoneum. Normal urinary bladder. There is enlargement of the prostate gland. The prostate measures 5.6 cm x 5.1 cm Small bilateral inguinal hernias containing fat. Small benign-appearing bilateral inguinal lymph nodes There are mild degenerative changes of the visualized lumbar spine. There is a 6.7 mm lucency in the superior aspect of the body of the L4 vertebrae. This is nonspecific. CT/Abdomen/Pelvis WITH Contrast IMPRESSION: Sigmoid diverticulosis. Prostatic enlargement. Status post cholecystectomy Electronically Signed: Satish Ortega MD at 10:03 EST ,
--- NOTE | 2022-04-03 07:46 | EX.ED.DYSGE1 ---
HPI History of Present Illness Chief Complaint: Nausea/Vomiting Detail of Chief Complaint: Abdominal pain pain Informant: patient Narrative Narrative: Patient presents with abdominal pain initially started 3 days ago. Patient states he was seen in the emergency department 3 days ago in the evening and had significant work-up including blood work as well as CTA of chest abdomen and pelvis which showed possible gastritis otherwise nothing significant. Patient states the pain never really went away but became more severe again yesterday. Patient states he had a hard time sleeping last night. He describes some nausea but no vomiting. He denies blood in the stool or black tarry stool. Patient also tells me he had an upper scope done by Dr. Ramesh Griffiths about 2 weeks ago as well as a colonoscopy. Patient is taking omeprazole. Pain does not radiate to his back. He currently denies any chest pain or shortness of breath. He has had a cholecystectomy. Patient states he has a family member who is a GI nurse practitioner and was told he may need an ultrasound of his upper abdomen to rule out a dilated biliary duct. Patient states that its been many years since he has had his gallbladder removed. Food really does not seem to make the pain worse although is not been eating much of late. Laying flat makes the pain worse. Patient states that he had similar episode about 3 years ago. Prior similar symptoms: Yes PFSH PFSH Medical History Arthritis Back pain Balance problem Barretts esophagus Cardiology follow-up encounter COVID Dietary restriction DVT (deep venous thrombosis) Essential (primary) hypertension Fatty liver Former smoker Gastric reflux Hemochromatosis High cholesterol History of echocardiogram History of edema History of stress test History of ulceration Hyperlipidemia Hypertension Insulin dependent diabetes mellitus Left bundle branch block Non-ischemic cardiomyopathy Obesity Prostate disease Restless legs Scab Type 2 diabetes mellitus Wears glasses Home Medications aspirin 81 mg tablet,delayed release (Adult Aspirin Regimen) 81 mg PO DAILY 05/27/18 [History Last Taken 01/04/22] glimepiride 2 mg tablet 2 mg PO QAM 05/27/18 [History Last Taken 01/04/22] metformin 1,000 mg tablet 1,000 mg PO BID 05/27/18 [History Last Taken 01/04/22] omeprazole 20 mg capsule,delayed release 20 mg PO DAILY 05/27/18 [History Last Taken 01/04/22] folic acid 1 mg tablet 1 mg PO DAILY 06/10/19 [History Last Taken 01/04/22] lisinopril 40 mg tablet 40 mg PO QHS 06/10/19 [History Last Taken 01/04/22] vit A 7,160 unit-vit C 113 mg-vit E 100 guyh-cndb-uwjtbk tablet 1 tab PO BID 06/10/19 [History Last Taken 01/04/22] dulaglutide 0.75 mg/0.5 mL subcutaneous pen injector 0.75 mg subcut QWEEK 07/11/21 [History Last Taken 01/04/22] insulin degludec 100 unit/mL (3 mL) subcutaneous pen (Tresiba FlexTouch U-100 insulin) 25 unit subcut QHS 07/11/21 [History Last Taken 01/04/22 12.5 units] amlodipine 5 mg tablet 5 mg PO QHS 01/03/22 [History Last Taken 01/05/22] rosuvastatin 20 mg tablet 20 mg PO QHS 01/03/22 [History Last Taken 01/04/22] sucralfate 1 gram tablet (Carafate) 1 g PO .AC #120 tabs 04/01/22 [Rx Last Taken Unknown] Allergy/AdvReac Type Severity Reaction Status Date / Time indomethacin AdvReac Nausea Verified 04/03/22 07:30 Family History Father Heart disease Surgical History History of esophagogastroduodenoscopy (EGD) History of left heart catheterization (08/28/18) Hx of cholecystectomy Hx of colonoscopy Hx of left cataract extraction Hx of right cataract extraction Social History (Updated 04/01/22 @ 20:[address] Scooby Rodríguez MD) household members: spouse Smoking Status: Former smoker quit date: 02/25/79 pack-years: 15 alcohol intake: current ROS ROS ED Review of Systems ROS Unobtainable: other Constitutional Constitutional ED: Reports lethargy; Denies chills, fever(s), sweats or weight loss Eyes Eyes: Denies blurry vision, change in vision or diplopia ENT ENT ED: Denies rhinorrhea or sore throat Cardiovascular Cardiovascular: Denies chest pain, orthopnea or racing heartbeat Respiratory/Chest Respiratory/Chest: Denies cough, dyspnea, dyspnea on exertion, orthopnea or sputum Gastrointestinal Gastrointestinal: Reports abdominal pain and nausea; Denies diarrhea or vomiting Genitourinary Genitourinary ED: Denies dysuria, hematuria or urinary frequency Musculoskeletal Musculoskeletal: Denies arthralgias, back pain, myalgias or neck pain Integumentary Denies abscess, Abrasions or rash Neurologic Neurologic: Denies headache(s) or weakness Psychiatric Psychiatric: Denies anxiety, depression or suicidal thoughts Endocrine Endocrinology: Denies polydipsia, polyphagia or polyuria Hematologic/Lymphatic Hematologic/Lymphatic: Denies easy bleeding, easy bruising or lymphadenopathy Allergic/Immunologic Allergic/Immunologic ED: Denies mouth swelling, tongue swelling or urticaria EXAM Physical Exam Const Vital Signs: 04/03/22 07:29 04/03/22 10:33 04/03/22 10:36 Temperature 97.0 F L 98.1 F Temperature Source Temporal Oral Pulse Rate 86 80 Respiratory Rate 14 16 Blood Pressure 147/82 H 162/85 H Blood Pressure Mean 103 110 Pulse Ox 100 97 Oxygen Delivery Method Room Air Room Air Positive well nourished and well developed General Appearance ED: well developed and NAD HEENT Reports TM's clear and moist mucous membranes normocephalic and atraumatic; Negative for trauma or tenderness Tympanic Membrane ED: Yes TM's clear Eyes PERRL and EOMs intact bilaterally General Eye ED: Negative for pale conjunctiva or scleral icterus Neck no lymphadenopathy, supple and no JVD General: Negative for tenderness Chest Wall inspection of chest normal and palpation of chest normal Chest: Negative for tenderness Resp normal respiratory effort and clear to auscultation bilaterally Effort and Inspection: Negative for respiratory distress or pain with movement Auscultation: Negative for rhonchi, wheezes or diminished lung sounds Cardio regular rate, regular rhythm, S1 normal heart sound, S2 normal heart sound and no murmurs Peripheral Pulses: pulses 2+ throughout GI normal to inspection, nondistended, normoactive bowel sounds, soft to palpation, non-distended and no masses GI Narrative: Tenderness palpation over the epigastric region as well as the right upper quadrant and left upper quadrant. Mild tenderness over right lower quadrant. There is no rebound, rigidity, or peritoneal signs. Back/Spine no CVA tenderness and no thoracic nor lumbar tenderness Extremity normal to inspection General Extremety ED: Negative for edema General Extremity: Negative for edema Neuro oriented x3, CN's II-XII intact bilaterally, no sensory deficits noted and gait normal Sensorium / Orientation: awake, alert, oriented to person, oriented to place and oriented to time Motor Exam: strength 5/5 throughout and strength abnormal Psych mental status grossly normal Skin no rashes or lesions noted and no wounds MDM MDM MDM Narrative Medical decision making narrative: IV established on arrival. Patient medicated with morphine and Zofran. Lab work-up obtained showed a white count of 14.9 with a hemoglobin 13.4 and platelet count of 306. Chemistries showed a low sodium of 129 with a BUN of 34 and creatinine 1.48. LFTs were unremarkable and lipase was 81. Glucose was 304. Lactate was elevated at 2.7. Urinalysis unremarkable. CT scan of the abdomen pelvis with IV and p.o. contrast read by radiology as sigmoid diverticulosis with prostatic enlargement and patient noted to be status postcholecystectomy. Patient had some pain relief with the morphine but still complains of pain meds for 5 out of 10 currently. I did give him a GI cocktail which really did not seem to help much with his pain. Patient was given a bolus of Protonix IV. This point etiology of his pain is unclear. He has had ongoing pain for 3 days. Patient now with signs of dehydration with low sodium and elevated BUN and creatinine as well as elevated lactate. Case will be discussed with hospitalist to evaluate for admission. Lab Data Attestation: I reviewed the patient's lab results. Labs: Laboratory Results - last 24 hr 04/03/22 04/03/22 04/03/22 08:05 08:05 08:05 WBC 14.9 H RBC 5.94 Hgb 13.4 Hct 44.0 MCV 74.1 L MCH 22.6 L MCHC 30.5 L RDW Std Deviation 50.9 H RDW Coeff of Lola 20.1 H Plt Count 306 MPV 10.1 Immature Gran % (Auto) 0.400 Neut % (Auto) 84.8 H Lymph % (Auto) 8.2 L [place] % (Auto) 6.2 Eos % (Auto) 0.1 Baso % (Auto) 0.3 Absolute Neuts (auto) 12.7 H Absolute Lymphs (auto) 1.22 Nucleated RBC % 0 Differential Comment SCANNED Microcytosis 2+ Sodium 129 L Potassium 5.2 H Chloride 96 L Carbon Dioxide 23.0 Anion Gap 10 BUN 34 H Creatinine 1.48 H Estim Creat Clear Calc 44.45 Est GFR (MDRD) Af Amer 60 Est GFR (MDRD) Non-Af 50 L BUN/Creatinine Ratio 23.0 H Glucose 304 H Lactic Acid Cancelled Calcium 9.7 Total Bilirubin 0.90 AST 28 ALT 22 Alkaline Phosphatase 68 Troponin I High Sens 10 Total Protein 8.9 H Albumin 4.4 Globulin 4.5 H Albumin/Globulin Ratio 1.0 Lipase 81 Urine Color Urine Clarity Urine pH Ur Specific [place] Urine Protein Urine Glucose (UA) Urine Ketones Urine Occult Blood Urine Nitrite Urine Bilirubin Urine Urobilinogen Ur Leukocyte Esterase Urine RBC Urine WBC Ur Squamous Epith Cells Urine Bacteria Urine Mucus 04/03/22 04/03/22 09:53 10:00 WBC RBC Hgb Hct MCV MCH MCHC RDW Std Deviation RDW Coeff of Lola Plt Count MPV Immature Gran % (Auto) Neut % (Auto) Lymph % (Auto) [place] % (Auto) Eos % (Auto) Baso % (Auto) Absolute Neuts (auto) Absolute Lymphs (auto) Nucleated RBC % Differential Comment Microcytosis Sodium Potassium Chloride Carbon Dioxide Anion Gap BUN Creatinine Estim Creat Clear Calc Est GFR (MDRD) Af Amer Est GFR (MDRD) Non-Af BUN/Creatinine Ratio Glucose Lactic Acid 2.7 H* Calcium Total Bilirubin AST ALT Alkaline Phosphatase Troponin I High Sens Total Protein Albumin Globulin Albumin/Globulin Ratio Lipase Urine Color Yellow Urine Clarity Sl. Cloudy Urine pH 5.0 Ur Specific [place] 1.020 Urine Protein 100 H Urine Glucose (UA) 250 H Urine Ketones 15 H Urine Occult Blood 50 H Urine Nitrite Negative Urine Bilirubin Negative Urine Urobilinogen Normal Ur Leukocyte Esterase Negative Urine RBC 0-5 SEEN Urine WBC 0 SEEN Ur Squamous Epith Cells 0 SEEN Urine Bacteria RARE Urine Mucus 0 SEEN Radiography Diagnostic Testing: Clinical Impression(s) from Imaging Studies Abdomen/Pelvis CT 04/03/22 07:44 IMPRESSION: Sigmoid diverticulosis. Prostatic enlargement. Status post cholecystectomy Electronically Signed: Satish Ortega MD at 10:03 EST , EKG Initial EKG: Attestation: I personally reviewed and interpreted this EKG as follows: Comments: Sinus rhythm with ventricular rate of 80 bpm with left bundle branch block and occasional PACs. Discharge Plan Dx/Rx/DC Orders Clinical Impression: Abdominal pain, Acute hyponatremia, Acute renal insufficiency, Dehydration, Leukocytosis Disposition Disposition: Acute Care Hospital [facility]
[2022-04-03] MEDS: 0.9% Normal Saline 1,000 ML 125 ML IV ×2 (08:05→18:18)
[2022-04-03] MEDS: Ondansetron 4 MG/2 ML Vial IV ×2 (08:07→14:56)
[2022-04-03] MEDS: Morphine 4 MG/ML Syringe IV (08:08)
[2022-04-03 08:22] LABS: Absolute Lymphocyte Count 1.22 X10^3/uL (0.83-4.51); Absolute Neutrophil Count 12.7 X10^3/uL (2.0-7.7); Basophil# 0.04 X10^3/uL; Basophil% 0.3 % (0-1); Eosinophil# 0.01 X10^3/uL; Eosinophils% 0.1 % (0-5); Hemoglobin 13.4 g/dL (13.0-16.5); Lymphocyte # 1.22 X10^3/ul (0.83-4.51); Lymphocyte % 8.2 % (19-41); Mean Corp Hgb Conc 30.5 g/dL (32-36); Mean Corpuscular Hgb 22.6 pg (27.0-32.0); Mean Corpuscular Volume 74.1 fL (80-94); Mean Platelet Vol. 10.1 fl (6.2-12.0); Monocyte# 0.92 X10^3/uL; Monocyte% 6.2 % (0-10); NRBC Flagged by Analyzer 0 % (0-5); Neutrophil # 12.66 X10^3/uL (2.7-7.7); Neutrophil % 84.8 % (47-70); POSITIVE MORPHOLOGY YES; Platelet Count 306 K/mm3 (150-450); RBC Distribution Width CV 20.1 % (11.6-14.6); RBC Distribution Width SD 50.9 fl (35.1-43.9); Red Blood Count 5.94 M/mm3 (4.6-6.2); White Blood Count 14.9 K/mm3 (4.4-11.0)
[2022-04-03 08:23] LABS: Differential Indicated SCAN CRITERIA MET
[2022-04-03 08:46] LABS: Differential Comment SCANNED
[2022-04-03 08:47] LABS: Microcytosis 2+
[2022-04-03 08:50] LABS: AST(SGOT) 28 U/L (15-37); Alanine Aminotransfer ALT/SGPT 22 U/L (16-61); Albumin, Serum 4.4 g/dL (3.2-5.0); Alkaline Phosphatase 68 U/L (45-117); Anion Gap 10 (5-15); BUN 34 mg/dL (7-18); Calcium,Total 9.7 mg/dL (8.5-10.1); Chloride 96 mmol/L (98-107); Creatinine, Serum 1.48 mg/dL (0.70-1.30); EST Glomerular Filtration Rate 50 mL/min (>60); Est Glom Filt Rate - Afr Amer 60 mL/min (>60); Estimated Creatinine Clearance 44.45 ml/min; Globulin 4.5 g/dL (2.2-4.2); Glucose 304 mg/dL (74-106); Lipase 81 U/L (73-393); Potassium 5.2 mmol/L (3.5-5.1); Protein, Total 8.9 g/dL (6.4-8.2); Sodium Level 129 mmol/L (136-145); Troponin-I HS 10 pg/mL (3.0-78.0)
[2022-04-03 10:07] LABS: Mucous, Urine 0 SEEN /hpf (<or=2+); Squamous Epithelial Cells - UA 0 SEEN /hpf (0-5); White Blood Cells 0 SEEN /hpf (0-5)
[2022-04-03 10:13] LABS: Color, Urine Yellow (Yellow); Glucose, Dipstick 250 mg/dl (Normal); Ketone-Dipstick 15 mg/dl (Negative); Leukocyte Esterase-Dipstick Negative /ul (Negative); Nitrite-Dipstick Negative (Negative); Occult Blood-Urine 50 /ul (Negative); Protein-Dipstick 100 mg/dl (Negative); Urine Bilirubin Dipstick Negative (Negative); Urine Clarity Sl. Cloudy (Clear); Urine Urobilinogen Normal (Normal)
[2022-04-03 10:21] LABS: Bacteria RARE /hpf (None Seen); Red Blood Cells-Urine 0-5 SEEN /hpf (0-5)
[2022-04-03] MEDS: Mag Hydrox/Al Hydrox/Simeth 30 ML UDC PO (10:32)
[2022-04-03 10:33] VITALS: PULSE 80; RESP 16; O2SAT 97
[2022-04-03 10:36] VITALS: BP 162/85; TEMP 36.7
[2022-04-03 10:44] LABS: Lactic Acid 2.7 mmol/L (0.4-1.9)
--- NOTE | 2022-04-03 11:01 | HP.PCM.HOS_ITS ---
HPI - General General Date of Admission: 04/03/22 Date of Service: 04/03/22 Chief Complaint: nausea, vomiting HPI Narrative ALFRED MCKOY, is a 71 M with a PMH as outlined who presents via [facility] ED on with a complaint of abdominal pain, nausea and vomiting. Pain started ~ 3 days prior to admission, adn he was seen in the ED at that time. He had CTA of the abdomen and pelvis done then which showed possible gastritis, but no other sign ificant findings. He was discharged home, but pain didnt improve. Chest CT was negative for dissection. Pain has persisted and hasnt improved. He has been taking omeprazole for Carbajal's esophagus, for which he had an upper GI endoscopy in December 2021. He has not been eating or drinking well due to persistent abdominal pain. He denied any diarrhea, fever or chills or any other symptoms. Review of systems was otherwise negative. Vitals in the ED were temp of 97F, [place] of 80, PROMOTIONAL REPRESENTATIVE of 162/85, RR of 16 and he was saturating at 97% on room air. CBC showed wbc of 14.9, hb of 13.4, platelets of 306. Chemistry was significant for sodium of 129, potassium of 5.2, Cr of 1.48 and lactic acid of 2.7. Urinalysis showed no evidence of UTI. He again had T of the abdomen and pelvis this time with contrast which showed sigmoid diverticulosis and prostatic enlargement but no evidence of infection. He was given a GI cocktail in the ED, to no avaial and was also given IV protonix. He is being admitted to be managed for intractable abdominal pain, with hyponatremia and CHRIS as well as increased lactic acid due to dehydration. [facility] Medical History Arthritis Back pain Balance problem Barretts esophagus Cardiology follow-up encounter COVID Dietary restriction DVT (deep venous thrombosis) Essential (primary) hypertension Fatty liver Former smoker Gastric reflux Hemochromatosis High cholesterol History of echocardiogram History of edema History of stress test History of ulceration Hyperlipidemia Hypertension Insulin dependent diabetes mellitus Left bundle branch block Non-ischemic cardiomyopathy Obesity Prostate disease Restless legs Scab Type 2 diabetes mellitus Wears glasses Home Medications aspirin 81 mg tablet,delayed release (Adult Aspirin Regimen) 81 mg PO DAILY [facility] 05/27/18 [History Last Taken 04/02/22] glimepiride 2 mg tablet 2 mg PO QAM dm 05/27/18 [History Last Taken 04/02/22] metformin 1,000 mg tablet 1,000 mg PO BID dm 05/27/18 [History Last Taken 04/02/22] folic acid 1 mg tablet 1 mg PO DAILY supplement 06/10/19 [History Last Taken 04/02/22] lisinopril 40 mg tablet 40 mg PO QHS bp 06/10/19 [History Last Taken 04/02/22] vit A 7,160 unit-vit C 113 mg-vit E 100 atfo-lntu-dnfkuj tablet 1 tab PO BID supplement 06/10/19 [History Last Taken 04/02/22] dulaglutide 0.75 mg/0.5 mL subcutaneous pen injector 0.75 mg subcut QWEEK DM 07/11/21 [History Last Taken 1 Week Ago ~03/27/22] insulin degludec 100 unit/mL (3 mL) subcutaneous pen (Tresiba FlexTouch U-100 insulin) 25 unit subcut QHS dm 07/11/21 [History Last Taken 04/02/22] amlodipine 5 mg tablet 5 mg PO QHS bp 01/03/22 [History Last Taken 04/02/22] rosuvastatin 20 mg tablet 20 mg PO QHS cholesterol 01/03/22 [History Last Taken 04/02/22] omeprazole 40 mg capsule,delayed release 40 mg PO DAILY #30 caps 04/04/22 [Rx Last Taken Unknown] Allergy/AdvReac Type Severity Reaction Status Date / Time atorvastatin AdvReac Pain in Verified 04/03/22 22:00 joints indomethacin AdvReac Nausea Verified 04/03/22 07:30 Family History Father Heart disease Surgical History History of esophagogastroduodenoscopy (EGD) History of left heart catheterization (08/28/18) Hx of cholecystectomy Hx of colonoscopy Hx of left cataract extraction Hx of right cataract extraction Social History (Updated 04/01/22 @ 20:[address] Scooby Rodríguez MD) household members: spouse Smoking Status: Former smoker quit date: 02/25/79 pack-years: 15 alcohol intake: current ROS Constitutional Constitutional: Denies anorexia, chills, fatigue, fever(s), malaise or weakness Eyes Eyes: Reports change in vision ENT HEENT: Denies dysphagia or headache(s) Cardiovascular Cardiovascular: Denies chest pain, dyspnea on exertion, edema, lightheadedness, orthopnea or palpitations Respiratory/Chest Respiratory/Chest: Denies cough, dyspnea, shortness of breath at rest or shortness of breath with exertion Gastrointestinal Gastrointestinal: Denies abdominal pain Genitourinary Genitourinary: Denies burning urination or dysuria Musculoskeletal Musculoskeletal: Denies arthralgias Neurologic Neurologic: Denies confusion, dizziness, focal weakness or headache(s) Psychiatric Psychiatric: Denies anxiety Endocrine Endocrinology: Denies change in body appearance Hematologic/Lymphatic Hematologic/Lymphatic: Denies anemia Vital Signs Vital Signs Vital Signs: 04/03/22 07:29 04/03/22 10:33 04/03/22 10:36 Temperature 97.0 F L 98.1 F Temperature Source Temporal Oral Pulse Rate 86 80 Respiratory Rate 14 16 Blood Pressure 147/82 H 162/85 H Blood Pressure Mean 103 110 Pulse Ox 100 97 Oxygen Delivery Method Room Air Room Air Weight Weight: 193 lb Body Mass Index (BMI) 28.5 Physical Exam Const alert, oriented x3 and no apparent distress HEENT normocephalic, head/scalp atraumatic, hearing grossly normal bilaterally and moist oral mucous membranes Mouth: oral and palatal mucosa normal Eyes PERRL and EOMs intact bilaterally Neck no lymphadenopathy, supple and no JVD Resp normal respiratory effort, no retractions, no use of accessory muscles and clear to auscultation bilaterally Cardio regular rate, regular rhythm, S1 normal heart sound, S2 normal heart sound and no murmurs GI normal to inspection, nondistended, normoactive bowel sounds, soft to palpation, non-tender and non-distended Extremity normal to inspection, full ROM and no clubbing, cyanosis or edema Neuro oriented x3, CN's II-XII intact bilaterally and moves all extremities Sensorium / Orientation: awake Motor Exam: strength 5/5 throughout Psych affect normal Results Lab / Micro Data Result Diagrams: 04/04/22 06:20 04/04/22 06:20 Labs: Laboratory Results - last 24 hr 04/03/22 08:05: WBC 14.9 H, RBC 5.94, Hgb 13.4, Hct 44.0, MCV 74.1 L, MCH 22.6 L , MCHC 30.5 L, RDW Std Deviation 50.9 H, RDW Coeff of Lola 20.1 H, Plt Count 306, MPV 10.1, Immature Gran % (Auto) 0.400, Neut % (Auto) 84.8 H, Lymph % (Auto) 8.2 L, [place] % (Auto) 6.2, Eos % (Auto) 0.1, Baso % (Auto) 0.3, Absolute Neuts (auto) 12.7 H, Absolute Lymphs (auto) 1.22, Nucleated RBC % 0, Differential Comment SCANNED, Microcytosis 2+ 04/03/22 08:05: Sodium 129 L, Potassium 5.2 H, Chloride 96 L, Carbon Dioxide 23.0, Anion Gap 10, BUN 34 H, Creatinine 1.48 H, Estim Creat Clear Calc 44.45, Est GFR (MDRD) Af Amer 60, Est GFR (MDRD) Non-Af 50 L, BUN/Creatinine Ratio 23.0 H, Glucose 304 H, Calcium 9.7, Total Bilirubin 0.90, AST 28, ALT 22, Alkaline Phosphatase 68, Troponin I High Sens 10, Total Protein 8.9 H, Albumin 4.4, Globulin 4.5 H, Albumin/Globulin Ratio 1.0, Lipase 81 04/03/22 08:05: Lactic Acid Cancelled 04/03/22 09:53: Lactic Acid 2.7 H* 04/03/22 10:00: Urine Color Yellow, Urine Clarity Sl. Cloudy, Urine pH 5.0, Ur Specific [place] 1.020, Urine Protein 100 H, Urine Glucose (UA) 250 H, Urine Ketones 15 H, Urine Occult Blood 50 H, Urine Nitrite Negative, Urine Bilirubin Negative, Urine Urobilinogen Normal, Ur Leukocyte Esterase Negative, Urine RBC 0-5 SEEN, Urine WBC 0 SEEN, Ur Squamous Epith Cells 0 SEEN, Urine Bacteria RARE, Urine Mucus 0 SEEN Radiology Impression Abdomen/Pelvis CT 04/03/22 07:44 IMPRESSION: Sigmoid diverticulosis. Prostatic enlargement. Status post cholecystectomy Electronically Signed: Satish Ortega MD at 10:03 EST , Assessment & Plan Assessment/Plan (1) Gastritis: PLAN: Plan #Intractable abdominal pain, likely due to acute gastritis * abdomen quite soft during review * has a history of Carbajal's esophagus and had EGD done in December 2021. Als has a history of hiatal hernia * Keep n.p.o. and started on IV pantoprazole 40 mg twice daily. Hydrate gently with IV fluids. * IV morphine as needed. * CT abdomen and pelvis shows sigmoid diverticulosis and status postcholecystectomy. * #Type 2 diabetes mellitus: Hold insulin and dulaglutide as he is n.p.o. Hold glimepiride as well. SSI and scale. Checks ACHS. #Hypertension: On amlodipine #Hyperlipidemia: On rosuvastatin DVT prophylaxis: SCDs CODE STATUS: Full code * Patient and counseled extensively about different types of CODE STATUS including full code, DNR CCA and DNR CCA. Patient elects to be full code. * Total [id number] time 17 minutes. * Total of 70 minutes spent on reviewing patient's chart, seeing patient, e xamining patient, and formulating assessment and plan as well as documentation. Charges/Coding Visit Charges Inpatient E&M: 47823 Init Hosp L2 Procedures Hospitalists Procedures: 44141 Advncd Care Plan 30 Min
[2022-04-03 13:25] VITALS: BP 161/75; PULSE 89; RESP 16; TEMP 36.2; O2SAT 95
[2022-04-03 14:00] VITALS: BP 145/81; PULSE 85; RESP 16; TEMP 36.7; O2SAT 93
[2022-04-03 14:01] LABS: Reflex Lactate? Y
[2022-04-03 14:12] VITALS: BMI 27.9
[2022-04-03] MEDS: Morphine 2 MG/ML Syringe IV (14:56)
[2022-04-03 15:21] LABS: Bedside Glucose 231 mg/dL (74-106)
[2022-04-03] MEDS: Insulin Lispro 100 UNIT/ML INSULN.PEN SC (18:18)
[2022-04-03 18:45] LABS: Bedside Glucose 180 mg/dL (74-106)
[2022-04-03] MEDS: Lisinopril 40 MG Tablet PO (22:03)
[2022-04-03] MEDS: amLODIPine 5 MG Tablet PO (22:03)
[2022-04-03 22:20] VITALS: BP 132/78; PULSE 80; RESP 18; TEMP 36.8; O2SAT 94
[2022-04-04] MEDS: Insulin Lispro 100 UNIT/ML INSULN.PEN SC ×3 (01:14→11:05)
[2022-04-04] MEDS: Rosuvastatin 20 MG Tablet PO (01:17)
[2022-04-04 01:36] LABS: Bedside Glucose 175 mg/dL (74-106)
[2022-04-04] MEDS: 0.9% Normal Saline 1,000 ML 125 ML IV ×2 (02:54→10:01)
[2022-04-04 06:14] VITALS: BP 120/76; PULSE 68; RESP 16; TEMP 36.6; O2SAT 98
[2022-04-04 06:45] LABS: Bedside Glucose 164 mg/dL (74-106)
[2022-04-04 07:05] LABS: Absolute Lymphocyte Count 3.13 X10^3/uL (0.83-4.51); Absolute Neutrophil Count 6.4 X10^3/uL (2.0-7.7); Basophil# 0.07 X10^3/uL; Basophil% 0.6 % (0-1); Eosinophil# 0.16 X10^3/uL; Eosinophils% 1.4 % (0-5); Hematocrit 39.8 % (40-54); Hemoglobin 11.7 g/dL (13.0-16.5); Lymphocyte # 3.13 X10^3/ul (0.83-4.51); Lymphocyte % 28.2 % (19-41); Mean Corp Hgb Conc 29.4 g/dL (32-36); Mean Platelet Vol. 9.7 fl (6.2-12.0); Monocyte# 1.32 X10^3/uL; Monocyte% 11.9 % (0-10); NRBC Flagged by Analyzer 0 % (0-5); Neutrophil # 6.39 X10^3/uL (2.7-7.7); Neutrophil % 57.5 % (47-70); Platelet Count 286 K/mm3 (150-450); RBC Distribution Width CV 19.4 % (11.6-14.6); RBC Distribution Width SD 50.9 fl (35.1-43.9); Red Blood Count 5.31 M/mm3 (4.6-6.2); White Blood Count 11.1 K/mm3 (4.4-11.0)
[2022-04-04 07:35] LABS: Anion Gap 8 (5-15); BUN 29 mg/dL (7-18); BUN/Creat Ratio 26.6 RATIO (10-20); Calcium,Total 8.5 mg/dL (8.5-10.1); Chloride 103 mmol/L (98-107); Creatinine, Serum 1.09 mg/dL (0.70-1.30); EST Glomerular Filtration Rate 70 mL/min (>60); Est Glom Filt Rate - Afr Amer 85 mL/min (>60); Estimated Creatinine Clearance 60.36 ml/min; Glucose 159 mg/dL (74-106); Potassium 3.8 mmol/L (3.5-5.1); Sodium Level 138 mmol/L (136-145)
[2022-04-04 08:19] VITALS: BP 106/66; PULSE 64; RESP 16; TEMP 36.6; O2SAT 98
[2022-04-04] MEDS: Folic Acid 1 MG Tablet PO (08:42)
[2022-04-04 11:11] VITALS: BP 115/59; PULSE 92; RESP 16; TEMP 36.7; O2SAT 95
[2022-04-04 11:26] LABS: Bedside Glucose 210 mg/dL (74-106)
--- NOTE | 2022-04-04 12:32 | DCINST_ITS ---
Discharge Instructions Diet Discharge Diet: Low fat / Low cholesterol Activity Discharge Activity: Return to Normal Activity Weight Bearing Status: Weight bearing as tolerated Dressing / Incision Call your doctor if you observe: Fever of 101 or Higher, Dizziness, Chest pain, Increased palpitations (irregular heartbeat) and Uncontrolled pain Follow Up Care Test Results: Test results from this visit will be discussed in further detail at your follow- up appointment, if applicable. Discharge Plan Admission Admit Date/Time: 04/03/22 11:11 Primary Reason for Your Visit: gastritis Attending Provider: Ana Sam Primary Care Provider: Turner Kothari Instructions Patient Instructions: ED Gastritis (Adult) Discharge Orders/Prescriptions Prescriptions: New omeprazole 40 mg capsule,delayed release(DR/EC) 40 mg PO DAILY Qty: 30 2RF Continued Tresiba FlexTouch U-100 100 unit/mL (3 mL) insulin pen 25 unit SC QHS metformin 1,000 mg tablet 1,000 mg PO BID glimepiride 2 mg tablet 2 mg PO QAM aspirin [Adult Aspirin Regimen] 81 mg tablet,delayed release (DR/EC) 81 mg PO DAILY folic acid 1 mg tablet 1 mg PO DAILY lisinopril 40 mg tablet 40 mg PO QHS vit A-vit C-vit [id number] [id number] ijhb-gt-[id number] tablet 1 tab PO BID dulaglutide 0.75 mg/0.5 mL pen injector 0.75 mg subcut QWEEK rosuvastatin 20 mg tablet 20 mg PO QHS amlodipine 5 mg tablet 5 mg PO QHS Discontinued omeprazole 20 mg capsule,delayed release(DR/EC) 20 mg PO DAILY Referrals / Follow Up: Turner Kothari PA [Primary Care Provider] - Within 2 Weeks Disposition Disposition (needs filled in before D/C Order can be placed): Home, Self Care
--- NOTE | 2022-04-04 12:35 | DS.PCM_ITS ---
Providers Date of Admission: 04/03/22 Date of Discharge: 04/04/22 Primary Care Physician: MARIZA Aguirre Reason For Visit: INTRACTABLE ABDOMINAL PAIN Diagnosis Discharge Diagnosis (1) Gastritis: Status: Acute Code(s): K29.70 - Gastritis, unspecified, without bleeding Plan #Intractable abdominal pain, likely due to acute gastritis * abdomen quite soft during review * has a history of Carbajal's esophagus and had EGD done in December 2021. Als has a history of hiatal hernia * Keep n.p.o. and started on IV pantoprazole 40 mg twice daily. Hydrate gently with IV fluids. * IV morphine as needed. * CT abdomen and pelvis shows sigmoid diverticulosis and status postcholecystectomy. * #Type 2 diabetes mellitus: Hold insulin and dulaglutide as he is n.p.o. Hold glimepiride as well. SSI and scale. Checks ACHS. #Hypertension: On amlodipine #Hyperlipidemia: On rosuvastatin DVT prophylaxis: SCDs CODE STATUS: Full code * Patient and counseled extensively about different types of CODE STATUS i ncluding full code, DNR CCA and DNR CCA. Patient elects to be full code. * Total duzx-no-ocyt time 17 minutes. * Total of 70 minutes spent on reviewing patient's chart, seeing patient, examining patient, and formulating assessment and plan as well as documentation. Medications at Discharge Home Medications aspirin 81 mg tablet,delayed release (Adult Aspirin Regimen) [address] [facility] 05/27/18 glimepiride 2 mg tablet 2 mg PO QAM dm 05/27/18 metformin 1,000 mg tablet 1,000 mg PO BID dm 05/27/18 folic acid 1 mg tablet 1 mg PO DAILY supplement 06/10/19 lisinopril 40 mg tablet 40 mg PO QHS bp 06/10/19 vit A 7,160 unit-vit C 113 mg-vit E 100 rimh-esgs-ilspyu tablet 1 tab PO BID supplement 06/10/19 dulaglutide 0.75 mg/0.5 mL subcutaneous pen injector 0.75 mg subcut QWEEK DM 07/11/21 insulin degludec 100 unit/mL (3 mL) subcutaneous pen (Tresiba FlexTouch U-100 insulin) 25 unit subcut QHS dm 07/11/21 amlodipine 5 mg tablet 5 mg PO QHS bp 01/03/22 rosuvastatin 20 mg tablet 20 mg PO QHS cholesterol 01/03/22 omeprazole 40 mg capsule,delayed release 40 mg PO DAILY #30 caps 04/04/22 Hospital Course Operations None Procedures None Summary of Care Provided Minutes Spent on Discharge: 45 Hospital Course: ALFRED MCKOY, is a 71 M with a PMH as outlined who presents [facility] on with a complaint of abdominal pain, nausea and vomiting. Pain started ~ 3 days prior to admission, adn he was seen in the ED at that time. He had CTA of the a bdomen and pelvis done then which showed possible gastritis, but no other significant findings. He was discharged home, but pain didnt improve. Chest CT was negative for dissection. Pain has persisted and hasnt improved. He has been taking omeprazole for Carbajal's esophagus, for which he had an upper GI endoscopy in December 2021. He has not been eating or drinking well due to persistent abdominal pain. He denied any diarrhea, fever or chills or any other symptoms. Review of systems was otherwise negative. Vitals in the ED were temp of 97F, LA of 80, SWEEPER DRIVER of 162/85, RR of 16 and he was saturating at 97% on room air.? CBC showed wbc of 14.9, hb of 13.4, platelets of 306. Chemistry was significant for sodium of 129, potassium of 5.2, Cr of 1.48 and lactic acid of 2.7.? Urinalysis showed no evidence of UTI.? He again had T of the abdomen and pelvis this time with contrast which showed sigmoid diverticulosis and prostatic enlargement but no evidence of infection. He was given a GI cocktail in the ED, to no avaial and was also given IV protonix. He was admitted to be managed for intractable abdominal pain, with hyponatremia and CHRIS as well as increased lactic acid due to dehydration. He was hydrated with IVF and placed on IV PPI bid. He was kept NPO. Abdominal pain resolved and he was started on a diet, which he tolerated. Chris resolved and leucocytosis trended downwards. There was no evidence of infection. He remained stable and was discharged home on 04/04/2022. His protonix was increased to 40mg daily. He is to follow up with his PCP within 1-2 weeks. Patient seen and examined prior to discharge. He felt much better and had no active complaints. REview of systems was otherwise negative. Labs and vitals reviewed. Home meds reviewed and reconciled. Physical Exam Const alert, oriented x3 and no apparent distress General Appearance: cooperative and comfortable Orientation / Consciousness: awake Exam Limitations: no limitations HEENT normocephalic, head/scalp atraumatic, hearing grossly normal bilaterally and mo ist oral mucous membranes Mouth: oral and palatal mucosa normal Eyes PERRL and EOMs intact bilaterally Neck no lymphadenopathy, supple and no JVD Resp normal respiratory effort, no retractions, no use of accessory muscles and clear to auscultation bilaterally Cardio regular rate, regular rhythm, S1 normal heart sound, S2 normal heart sound and no murmurs GI normal to inspection, nondistended, normoactive bowel sounds, soft to palpation, non-tender and non-distended Extremity normal to inspection, full ROM and no clubbing, cyanosis or edema Skin no rashes or lesions noted Neuro oriented x3, CN's II-XII intact bilaterally and moves all extremities Sensorium / Orientation: awake Motor Exam: strength 5/5 throughout Psych affect normal Weight / BMI Weight Weight: 191 lb 14.4 oz Body Mass Index (BMI) 27.9 ABG / Lab / Microbiology Data Result Diagrams: 04/04/22 06:20 04/04/22 06:20 Laboratory: Laboratory Results - last 24 hr 04/03/22 14:15: Lactic Acid 2.0 04/03/22 15:02: POC Glucose 231 H 04/03/22 18:17: POC Glucose 180 H 04/04/22 01:06: POC Glucose 175 H 04/04/22 06:20: WBC 11.1 H, RBC 5.31, Hgb 11.7 L, Hct 39.8 L, MCV 75.0 L, MCH 22.0 L, MCHC 29.4 L, RDW Std Deviation 50.9 H, RDW Coeff of Lola 19.4 H, Plt Count 286, MPV 9.7, Immature Gran % (Auto) 0.400, Neut % (Auto) 57.5, Lymph % (Auto) 28.2, Duchesne % (Auto) 11.9 H, Eos % (Auto) 1.4, Baso % (Auto) 0.6, Absolute Neuts (auto) 6.4, Absolute Lymphs (auto) 3.13, Nucleated RBC % 0 04/04/22 06:20: Sodium 138, Potassium 3.8, Chloride 103, Carbon Dioxide 27.0, Anion Gap 8, BUN 29 H, Creatinine 1.09, Estim Creat Clear Calc 60.36, Est GFR (MDRD) Af Amer 85, Est GFR (MDRD) Non-Af 70, BUN/Creatinine Ratio 26.6 H, Glucose 159 H, Calcium 8.5 04/04/22 06:20: POC Glucose 164 H 04/04/22 11:04: POC Glucose 210 H D/C Instructions Discharge Diet: Low fat / Low cholesterol Weight Bearing Status: Weight bearing as tolerated Call your doctor if you observe: Fever of 101 or Higher, Dizziness, Chest pain, Increased palpitations (irregular heartbeat) and Uncontrolled pain Meaningful Use Info Meaningful Use Diagnoses (Choose all that apply): None applicable Discharge Plan Admission Admit Date/Time: 04/03/22 11:11 Primary Reason for Your Visit: gastritis Attending Provider: Ana Sam Primary Care Provider: Turner Kothari Instructions Patient Instructions: ED Gastritis (Adult) Discharge Orders/Prescriptions Prescriptions: New omeprazole 40 mg capsule,delayed release(DR/EC) 40 mg PO DAILY Qty: 30 2RF Continued Tresiba FlexTouch U-100 100 unit/mL (3 mL) insulin pen 25 unit SC QHS metformin 1,000 mg tablet 1,000 mg PO BID glimepiride 2 mg tablet 2 mg PO QAM aspirin [Adult Aspirin Regimen] 81 mg tablet,delayed release (DR/EC) 81 mg PO DAILY folic acid 1 mg tablet 1 mg PO DAILY lisinopril 40 mg tablet 40 mg PO QHS vit A-vit C-vit Z-teaz-xybvvb [id number] qyig-uu-ucev tablet 1 tab PO BID dulaglutide 0.75 mg/0.5 mL pen injector 0.75 mg subcut QWEEK rosuvastatin 20 mg tablet 20 mg PO QHS amlodipine 5 mg tablet 5 mg PO QHS Discontinued omeprazole 20 mg capsule,delayed release(DR/EC) 20 mg PO DAILY Referrals / Follow Up: Turner Kothari PA [Primary Care Provider] - Within 2 Weeks Disposition Disposition (needs filled in before D/C Order can be placed): Home, Self Care Charges/Coding Visit Charges Inpatient E&M: 77478 Disch Hosp >30min
== END 2022-04-04 12:55 | disposition home or self-care (01) ==
LOC: ED 10:57 → MS2 13:23
PROVIDERS: Admitting Provider Student in an Organized Health Care Education/Training Program; Emergency Provider Emergency Medicine; PCP Physician Assistant; Visit Provider Student in an Organized Health Care Education/Training Program
DX: K29.70 Gastritis, unspecified, without bleeding (principal); I42.8 Other cardiomyopathies; E11.9 Type 2 diabetes mellitus without complications; Z79.4 Long term (current) use of insulin; E86.0 Dehydration; Z79.84 Long term (current) use of oral hypoglycemic drugs; I10 Essential (primary) hypertension; Z87.891 Personal history of nicotine dependence; Z86.16 Personal history of COVID-19; K57.30 Diverticulosis of large intestine without perforation or abscess without bleeding; Z79.82 Long term (current) use of aspirin; E87.1 Hypo-osmolality and hyponatremia; K22.70 Barrett's esophagus without dysplasia; E78.00 Pure hypercholesterolemia, unspecified; N28.9 Disorder of kidney and ureter, unspecified; Z79.899 Other long term (current) drug therapy
CPT/HCPCS: 36415; 74177; 80048; 80053; 81001; 82962; 83605; 83690; 84484; 85025; 93005; 96361; 96365; 96366; 96375; 96376; 99221; 99284; J7030; Q9967; A4216; G0378; J2405; J3490

== ENCOUNTER → 2022-08-22 | Outpatient (CLI) | payer MEDICARE, OTHER, SELFPAY ==
--- NOTE | 2022-08-22 10:51 | ECHOD_ITS ---
Reason For Study: CONGESTIVE HEART FAILURE Procedure This was a 2D Doppler, Color Flow transthoracic echocardiogram. Exam performed in department. Left Ventricle Normal LV size. Mild concentric left ventricular hypertrophy. The estimated ejection fraction is 50 %. Septal motion consistent with bundle branch block. Stage 1 diastolic dysfunction. Right Ventricle Normal RV size. Normal systolic function. Atria Normal left atrium. Normal right atrium. Tricuspid Valve Normal tricuspid valve. Pulmonic Valve Normal pulmonic valve. Great Vessels Normal aortic root. The pulmonary artery is normal size. Pericardium/Pleural No pericardial effusion. MMode/2D Measurements & Calculations LVIDd: 3.9 cm IVSd: 1.4 cm LVOT diam: 2.1 cm LVIDs: 2.6 cm LVPWd: 1.2 cm LVOT area: 3.3 cm2 RVDd: 3.1 cm FS: 33.1 % Ao root diam: 3.4 cm LAV(MOD-bp): 54.3 ml LVAd ap4: 26.5 cm2 LAV(MOD-bp) Indexed: 26.3 ml/m2 LVLd ap4: 7.9 cm LAV(MOD-sp2): 53.3 ml EDV(MOD-sp4): 73.0 ml LAV(MOD-sp4): 43.4 ml EDV(sp4-el): 75.2 ml LVAs ap4: 16.6 cm2 LVLs ap4: 6.4 cm ESV(MOD-sp4): 37.8 ml ESV(sp4-el): 36.4 ml EF(MOD-sp4): 48.2 % EF(sp4-el): 51.6 % SV(MOD-sp4): 35.2 ml SV(MOD-sp2): 54.3 ml LVAd ap2: 35.7 cm2 LVLd ap2: 9.1 cm EDV(MOD-sp2): 115.0 ml EDV(sp2-el): 118.5 ml LVAs ap2: 24.2 cm2 LVLs ap2: 7.9 cm ESV(MOD-sp2): 60.6 ml ESV(sp2-el): 63.0 ml EF(MOD-sp2): 47.3 % SV(sp4-el): 38.8 ml LA A4 area: 18.7 cm2 LA dimension(2D): 3.4 cm RA A4 area: 14.9 cm2 Time Measurements MV dec time: 0.29 sec Doppler Measurements & Calculations MV E max ruiz: 67.2 cm/sec Lat Peak E' Ruiz: 10.3 cm/sec Med Peak E' Ruiz: 5.5 cm/sec MV A max ruiz: 84.1 cm/sec E/E' lat: 6.5 E/E' med: 12.3 MV E/A: 0.80 MV dec slope: 235.7 cm/sec2 Ao V2 max: 147.1 cm/sec LV V1 max: 100.9 cm/sec Ao max P.6 mmHg LV V1 max P.1 mmHg Ao V2 mean: 110.5 cm/sec LV V1 mean P.5 mmHg Ao mean P.4 mmHg LV V1 mean: 73.2 cm/sec Ao V2 VTI: 32.4 cm LV V1 VTI: 21.7 cm AV (velocity ratio): 0.67 SUELLEN(I,D): 2.2 cm2 SUELLEN(V,D): 2.3 cm2 SV(LVOT): 72.1 ml PA V2 max: 150.7 cm/sec TR max ruiz: 225.3 cm/sec PA max PG (full): 5.9 mmHg TR max P.3 mmHg ECHO/Echo Complete Interpretation Summary Normal LV size. The estimated ejection fraction is 50 %. Septal motion consistent with bundle branch block. Stage 1 diastolic dysfunction. Mild concentric left ventricular hypertrophy. Ordering Physician: Jigar Monte Referring Physician: Rey Michaud MD Performed By: Tiffany Esqueda RDCS
== END | disposition home or self-care (01) ==
LOC: CVS 10:49
PROVIDERS: PCP Physician Assistant; Referring Provider Internal Medicine Cardiovascular Disease; Visit Provider Internal Medicine Cardiovascular Disease
DX: I42.8 Other cardiomyopathies (principal); E83.119 Hemochromatosis, unspecified
CPT/HCPCS: 93306